=== PATIENT | female | born 1965 | race Two or more races ===

== ENCOUNTER 2018-03-12 05:12 | Emergency (ER) | payer SELFPAY ==
[~2018-03-12] VITALS: Ht 152.4 cm; Wt 74.8 kg
--- NOTE | 2018-03-12 05:29 | Emergency Room Report ---
History of Present Illness General Chief Complaint: Abdominal pain Source: Patient (Kenney Cotton MD) Present Illness HPI Patient is a 52-year-old female who presented after increased abdominal pain. Patient reports having periumbilical abdominal pain associated with nausea and vomiting. Patient reports having multiple episodes of vomiting and diarrhea. She was having severe abdominal discomfort. Patient states is constant in nature. She denies any hematemesis or bloody stools. Patient states that she had prior hysterectomy. She denies any fever. (Kenney Cotton MD) Allergies: Coded Allergies: No Known Allergies (Unverified , 03/12/18) Patient History Reviewed Nursing Documentation: PMH: Agreed; PSxH: Agreed (Kenney Cotton MD) Review of Systems All Other Systems: negative except mentioned in HPI (Kenney Cotton MD) Physical Exam Sp02 EP Interpretation: reviewed, normal General Appearance: normal inspection, well appearing, no apparent distress, alert, GCS 15, obese, Chronically Ill Head: atraumatic ENT: normal ENT inspection, hearing grossly normal, normal voice Neck: normal inspection, full range of motion, supple, no bony tend Respiratory: normal inspection, lungs clear, normal breath sounds, no respiratory distress, no retraction, no wheezing Cardiovascular #1: regular rate, rhythm, no edema Gastrointestinal: normal inspection, normal bowel sounds, non tender, soft, no guarding, no hernia, tenderness - epigastric Genitourinary: no CVA tenderness Musculoskeletal: normal inspection, back normal, normal range of motion Neurologic: normal inspection, alert, oriented x3, responsive, pediatric cardiologist III-XII nml as tested, speech normal Psychiatric: normal inspection, judgement/insight normal, mood/affect normal Skin: normal inspection, normal color, no rash (Kenney Cotton MD) Medical Decision Making Diagnostic Impression: Primary Impression: Abdominal pain Additional Impression: Gastroenteritis ER Course Please see above note by Dr. Cotton. Patient with abdominal pain, NVD 1 day. Labs with normal WBC and H/H. CMP unremarkable and UA negative. CT - liquid stool, some dilated loops - no obstruction. Improved with analgesia. Discussed treatment plan with patient and family. Patient stable for outpatient observation and treatment. Laboratory Tests Test 03/12/18 05:25 03/12/18 05:41 Urine Color Pale yellow Urine Appearance Clear Urine pH 6 (4.5-8.0) Urine Specific [place] 1.015 (1.005-1.035) Urine Protein 2+ (NEGATIVE) H Urine Glucose (UA) Negative (NEGATIVE) Urine Ketones Negative (NEGATIVE) Urine Blood 1+ (NEGATIVE) H Urine Nitrite Negative (NEGATIVE) Urine Bilirubin Negative (NEGATIVE) Urine Urobilinogen Normal MG/DL (0.0-1.0) Urine Leukocyte Esterase Negative (NEGATIVE) Urine RBC 0-2 /HPF (0 - 2) Urine WBC 0 /HPF (0 - 2) Urine Squamous Epithelial Cells Few /LPF (NONE/OCC) Urine Bacteria None /HPF (NONE) White Blood Count 8.9 K/UL (4.8-10.8) Red Blood Count 5.02 M/UL (4.20-5.40) Hemoglobin 15.1 G/DL (12.0-16.0) Hematocrit 45.2 % (37.0-47.0) Mean Corpuscular Volume 90 FL (80-99) Mean Corpuscular Hemoglobin 30.2 PG (27.0-31.0) Mean Corpuscular Hemoglobin Concent 33.5 G/DL (32.0-36.0) Red Cell Distribution Width 11.6 % (11.6-14.8) Platelet Count 307 K/UL (150-450) Mean Platelet Volume 5.8 FL (6.5-10.1) L Neutrophils (%) (Auto) 83.4 % (45.0-75.0) H Lymphocytes (%) (Auto) 10.9 % (20.0-45.0) L Monocytes (%) (Auto) 4.9 % (1.0-10.0) Eosinophils (%) (Auto) 0.1 % (0.0-3.0) Basophils (%) (Auto) 0.6 % (0.0-2.0) Prothrombin Time 10.2 SEC (9.30-11.50) Prothrombin Time INR 1.0 (0.9-1.1) PTT 27 SEC (23-33) Sodium Level 133 MMOL/L (136-145) L Potassium Level 3.7 MMOL/L (3.5-5.1) Chloride Level 100 MMOL/L (98-107) Carbon Dioxide Level 22 MMOL/L (21-32) Anion Gap 11 mmol/L (5-15) Blood Urea Nitrogen 15 mg/dL (7-18) Creatinine 0.7 MG/DL (0.55-1.30) Estimate Glomerular Filtration Rate > 60 mL/min (>60) Glucose Level 119 MG/DL (74-106) H Calcium Level 9.3 MG/DL (8.5-10.1) Total Bilirubin 0.4 MG/DL (0.2-1.0) Aspartate Amino Transferase (AST) 45 U/L (15-37) H Alanine Aminotransferase (ALT) 48 U/L (12-78) Alkaline Phosphatase 104 U/L (46-116) Troponin I 0.000 ng/mL (0.000-0.056) Total Protein 8.9 G/DL (6.4-8.2) H Albumin 3.9 G/DL (3.4-5.0) Globulin 5.0 g/dL Albumin/Globulin Ratio 0.8 (1.0-2.7) L Lipase 67 U/L (73-393) L (Saravanan Duncan M.D.) CT/MRI/US Diagnostic Results CT/MRI/US Diagnostic Results : Imaging Test Ordered: abd/pelvis Impression Fluid-filled nondistended loops of distal small bowel with liquid stool seen throughout the colon and possible mild concentric wall thickening of small bowel loops. 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 (Saravanan Duncan M.D.) Status: improved (Saravanan Duncan M.D.) Disposition: HOME, SELF-CARE Condition: Improved Referrals: NOT CHOSEN LILIAM/,REFERRING (PCP) Kenney Cotton MD Mar 12, 2018 05:28 Saravanan Duncan M.D. Mar 12, 2018 06:48
[2018-03-12] MEDS ORDERED: Dicyclomine HCl 10mg/5ml oral soln ORAL ONE (05:30)
[2018-03-12] MEDS ORDERED: LR 1000ml 1,000 ML IV SCH (05:30)
[2018-03-12 05:50] LABS: APPEARANCE,URINE CLEAR; BILIRUBIN, URINE NEGATIVE (NEGATIVE); COLOR,URINE PALE YELLOW; GLUCOSE, URINE (UA) NEGATIVE (NEGATIVE); KETONES,URINE NEGATIVE (NEGATIVE); LEUKOCYTE ESTERASE ,URINE NEGATIVE (NEGATIVE); NITRITE,URINE NEGATIVE (NEGATIVE); PH,URINE 6 (4.5-8.0); PROTEIN,URINE 2+ (NEGATIVE); UROBILINOGEN,URINE NORMAL MG/DL (0.0-1.0)
[2018-03-12 05:59] LABS: BASOPHILS % (AUTO) 0.6 % (0.0-2.0); EOSINOPHILS % (AUTO) 0.1 % (0.0-3.0); HEMATOCRIT 45.2 % (37.0-47.0); HEMOGLOBIN 15.1 G/DL (12.0-16.0); LYMPHOCYTES % (AUTO) 10.9 % (20.0-45.0); MEAN CORPUSCULAR VOLUME 90 FL (80-99); MONOCYTES % (AUTO) 4.9 % (1.0-10.0); NEUTROPHILS % (AUTO) 83.4 % (45.0-75.0); PLATELET COUNT 307 K/UL (150-450); RED BLOOD COUNT 5.02 M/UL (4.20-5.40); RED CELL DISTRIBUTION WIDTH 11.6 % (11.6-14.8); WHITE BLOOD COUNT 8.9 K/UL (4.8-10.8)
[2018-03-12 06:05] LABS: ANION GAP 11 mmol/L (5-15); BLOOD UREA NITROGEN 15 mg/dL (7-18); CALCIUM 9.3 MG/DL (8.5-10.1); CARBON DIOXIDE 22 MMOL/L (21-32); CHLORIDE 100 MMOL/L (98-107); CREATININE 0.7 MG/DL (0.55-1.30); POTASSIUM 3.7 MMOL/L (3.5-5.1); SODIUM 133 MMOL/L (136-145)
[2018-03-12 06:09] LABS: ALANINE AMINOTRANSFERASE 48 U/L (12-78); ALBUMIN 3.9 G/DL (3.4-5.0); ALBUMIN/GLOBULIN RATIO 0.8 (1.0-2.7); ALKALINE PHOSPHATASE 104 U/L (46-116); ASPARTATE AMINO TRANSFERASE 45 U/L (15-37); BILIRUBIN,TOTAL 0.4 MG/DL (0.2-1.0)
[2018-03-12 06:10] VITALS: BP 107/69
[2018-03-12] MEDS ORDERED: Isovue-300 100ml vial INJ PRN (07:00)
[2018-03-12] MEDS ORDERED: Morphine Sulfate 2mg/ml Inj IVP ONE (07:15)
[2018-03-12] MEDS ORDERED: TYLENOL325 MG ORAL (08:16)
[2018-03-12] MEDS ORDERED: TRAMADOL HCL50 MG ORAL (08:16)
[2018-03-12] MEDS ORDERED: ZOFRAN 4 MG4 MG/2 ML IV (08:16)
--- NOTE | 2018-03-12 08:40 | Diagnostic Imaging Report ---
Clinical Indication: Abdominal pain, periumbilical increased pain, nausea, vomiting, constant in nature Technique: No oral contrast utilized, per emergency room physician request IV administration nonionic contrast. Venous phase spiral acquisition obtained through the abdomen and pelvis. Multiplanar reconstructions were generated. Total dose length product 869.63 mGycm. CTDIvol(s) 15.7 mGy. Dose reduction achieved using automated exposure control Comparison: none Findings: There is colonic diverticulosis. No evidence of diverticulitis. Large and small bowel is borderline distended, fluid-filled. No definite wall thickening but the wall does appear to be somewhat enhancing. There is gradual transition to normal caliber distal ileum in the left lower quadrant. Proximal jejunal loops are equivocally mildly thick-walled. Considerable fluid is seen within many parts of the colon. No extraluminal gas or fluid. No intramural gas. The liver is diffusely hypoattenuating, consistent with fatty change. No focal abnormality. The gallbladder demonstrates wall thickening and enhancement, but no radiopaque calculi. No biliary ductal dilatation. The pancreas, spleen, adrenals, kidneys are all unremarkable. No retroperitoneal or mesenteric mass or adenopathy. A unilocular cyst measuring 6 cm long axis dimension is seen arising from the right ovary. The uterus is not visualized, presumed surgically absent. Impression: Fluid-filled borderline distended small bowel loops, with possible areas of small bowel wall thickening, no definite transition zone. Considerable fluid also seen within the colon. Findings most likely represent enteritis, either infectious or noninfectious inflammatory. Presence of some nondilated distal small bowel raises possibility of early/partial small bowel obstruction, but this is deemed less likely Colonic diverticulosis 6 cm right ovarian cyst. Further evaluation with ultrasound recommended. This was discussed by phone with Dr. Duncan at the time of interpretation Evidence of prior hysterectomy Hepatic steatosis The CT scanner at [facility] is accredited by the [employer] and the scans are performed using protocols designed to limit radiation exposure to as low as reasonably achievable to attain images of sufficient resolution adequate for diagnostic evaluation.
[2018-03-12 08:47] VITALS: BP 101/51
[2018-03-12 08:50] VITALS: BP 101/51
== END 2018-03-12 08:50 | disposition home or self-care (01) ==
LOC: EMR 05:26
DX: K52.9 Noninfective gastroenteritis and colitis, unspecified (principal); R11.10 Vomiting, unspecified; R10.9 Unspecified abdominal pain
CPT/HCPCS: 36415; 74177; 80053; 81003; 83690; 84484; 85025; 85610; 85730; 96361; 96374; 96375; 99284; J2270; J2405; Q9967

== ENCOUNTER 2018-12-12 19:50 | Inpatient (IN) | payer MEDICAID, SELFPAY ==
[~2018-12-12] VITALS: Ht 152.4 cm; Wt 77.6 kg
[~2018-12-12 19:50] MED LIST: TRAMADOL HCL50 MG ORAL; TYLENOL325 MG ORAL; ZOFRAN 4 MG4 MG/2 ML IV
[2018-12-12 20:07] VITALS: BP 135/81
--- NOTE | 2018-12-12 20:07 | NUR ---
ED Nurse Note: Pt ambulated to ED from home c/o 01/30 RUQ abd pain radiating to back [id number], worsening today at 1500. Pt is A&Ox4
[2018-12-12 20:16] LABS: APPEARANCE,URINE CLEAR; BILIRUBIN, URINE 2+ (NEGATIVE); COLOR,URINE BROWN; GLUCOSE, URINE (UA) NEGATIVE (NEGATIVE); KETONES,URINE 1+ (NEGATIVE); LEUKOCYTE ESTERASE ,URINE 1+ (NEGATIVE); NITRITE,URINE NEGATIVE (NEGATIVE); PH,URINE 6.5 (4.5-8.0); PROTEIN,URINE 2+ (NEGATIVE); UROBILINOGEN,URINE 4 MG/DL (0.0-1.0)
--- NOTE | 2018-12-12 20:17 | Emergency Room Report ---
History of Present Illness General Chief Complaint: Abdominal Pain Source: Patient (Lita Gant) Present Illness HPI 53-year-old female with history of gallstones here complaining of epigastric and right upper quadrant pain that has been going on for the past 3 months now radiating to her back. Patient went to [place] a month ago and had an ultrasound done of her abdomen and was diagnosed with gallstone. Patient has not been appointment with her primary care provider yet as she has not had her [employer] insurance fix. Patient denies nausea and vomiting, diarrhea, blood in her stool, fever and chills. Patient has been taking Advil for pain rating the pain 3 out of 10 at the moment without radiation however did have radiation to her back today. Patient reports that she eats greasy food however denies eating spicy and acidic food. Denies drinking alcohol, smoking tobacco, drug use. Denies chest pain, shortness of breath, palpitation, history of hypertension, diabetes, and all other associated symptoms. (Lita Gant) Allergies: Coded Allergies: No Known Allergies (Unverified , 03/12/18) Patient History Past Medical History: see triage record Past Surgical History: unable to obtain Pertinent Family History: none Last Menstrual Period: TOTAL HYSTERECTOMY 15 YRS Now: No Immunizations: UTD Reviewed Nursing Documentation: PMH: Agreed; PSxH: Agreed (Lita Gant) Nursing Documentation-PMH Past Medical History: No History, Except For (Lita Gant) Review of Systems All Other Systems: negative except mentioned in HPI (Lita Gant) Physical Exam Vital Signs Date Time Temp Pulse Resp B/P (MAP) Pulse Ox O2 Delivery O2 Flow Rate FiO2 12/12/18 19:53 98.6 66 15 135/81 (99) 97 Room Air Sp02 EP Interpretation: reviewed, normal General Appearance: normal inspection, well appearing, no apparent distress, alert, GCS 15 Head: normocephalic, atraumatic Eyes: bilateral eye normal inspection, bilateral eye PERRL ENT: normal ENT inspection, hearing grossly normal, normal pharynx, no angioedema Neck: normal inspection, full range of motion, supple, thyroid normal Respiratory: normal inspection, chest non-tender, lungs clear, normal breath sounds, no rhonchi, no respiratory distress, no retraction, no wheezing Cardiovascular #1: normal inspection, normal peripheral pulses, regular rate, rhythm, no edema, no murmur Gastrointestinal: normal bowel sounds, non tender, soft, no mass, no guarding, no hernia, no pulsatile mass, no rebound, other - Negative Gutiérrez's sign Rectal: deferred Genitourinary: no CVA tenderness Musculoskeletal: normal inspection, back normal, gait/station normal Neurologic: normal inspection, alert, oriented x3 Psychiatric: normal inspection, judgement/insight normal Skin: normal inspection, normal color, no rash, warm/dry Lymphatic: normal inspection, no adenopathy (Lita Gant) Medical Decision Making PA Attestation All my diagnosis and treatment plans were reviewed ad discussed with my supervising physician Dr. Cotton (Lita Gant) Diagnostic Impression: Primary Impression: Elevated liver enzymes Additional Impressions: RUQ abdominal tenderness Acute gallstone pancreatitis ER Course 53-year-old female with history of gallstones here complaining of epigastric and right upper quadrant pain that has been going on for the past 3 months now radiating to her back. Patient went to [place] a month ago and had an ultrasound done of her abdomen and was diagnosed with gallstone. Patient has not been appointment with her primary care provider yet as she has not had her [employer] insurance fix. Patient denies nausea and vomiting, diarrhea, blood in her stool, fever and chills. Patient has been taking Advil for pain rating the pain 3 out of 10 at the moment without radiation however did have radiation to her back today. Patient reports that she eats greasy food however denies eating spicy and acidic food. Denies drinking alcohol, smoking tobacco, drug use. Denies chest pain, shortness of breath, palpitation, history of hypertension, diabetes, and all other associated symptoms. Ddx considered but are not limited to: appendicitis, cholycisitis, gastritis, gasthroentritis, UTI, pylonephritis, SBO, diverticulitis, influenza with GI manifestation, GA, cholylithiasis Vital signs: are WNL, pt. is afebrile H&PE are most consistent with: Uncomplicated cholelithiasis RUQ abdominal tenderness, elevated liver enzymes ORDERS: CBC, CMP, UA, EKG, PTT, PT, CXR, type and cross ED INTERVENTIONS: None required at this time. Patient was admited with diagnosis of elevated liver enzymes and RUQ tenderness to under supervision of : Yury pt stable at time of admission AST and ALT above 600, Alk phos: 185 (Lita Gant) ER Course Patient presented for increased right upper abdominal pain. Differential diagnosis include was not limited to biliary colic, pancreatitis, cholecystitis , choledocholithiasis, peptic ulcer disease among others. Because of complexity of patient's case laboratory testing and imaging studies were ordered. Patient was seen initially by physician hotel assistant general manager. Patient was noted to have some epigastric and right upper quadrant tenderness. Patient's laboratory testing showed evidence of elevation hepatic enzymes as well as hyperbilirubinemia. Abdominal ultrasound was ordered to evaluate for possible choledocholithiasis. Dr. Gomez was contacted for inpatient management due to need for inpatient monitoring and treatment. Labs Test 12/12/18 20:00 12/12/18 20:18 12/13/18 07:34 Urine Color Brown Urine Appearance Clear Urine pH 6.5 (4.5-8.0) Urine Specific [place] 1.015 (1.005-1.035) Urine Protein 2+ (NEGATIVE) Urine Glucose (UA) Negative (NEGATIVE) Urine Ketones 1+ (NEGATIVE) Urine Blood Negative (NEGATIVE) Urine Nitrite Negative (NEGATIVE) Urine Bilirubin 2+ (NEGATIVE) Urine Ictotest Positive (NEGATIVE) Urine Urobilinogen 4 MG/DL (0.0-1.0) Urine Leukocyte Esterase 1+ (NEGATIVE) Urine RBC 0 /HPF (0 - 2) Urine WBC 0-2 /HPF (0 - 2) Urine Squamous Epithelial Cells Occasional /LPF Urine Bacteria Few /HPF (NONE) Prothrombin Time 10.0 SEC (9.30-11.50) Prothromb Time International Ratio 0.9 (0.9-1.1) Activated Partial Thromboplast Time 24 SEC (23-33) Total Bilirubin 2.4 MG/DL (0.2-1.0) Direct Bilirubin 1.8 MG/DL (0.0-0.3) Aspartate Amino Transf (AST/SGOT) 629 U/L (15-37) Alanine Aminotransferase (ALT/SGPT) 620 U/L (12-78) Alkaline Phosphatase 185 U/L (46-116) Total Protein 7.8 G/DL (6.4-8.2) Albumin 4.2 G/DL (3.4-5.0) Globulin 3.6 g/dL Albumin/Globulin Ratio 1.2 (1.0-2.7) White Blood Count 5.9 K/UL (4.8-10.8) Red Blood Count 4.28 M/UL (4.20-5.40) Hemoglobin 13.2 G/DL (12.0-16.0) Hematocrit 38.8 % (37.0-47.0) Mean Corpuscular Volume 91 FL (80-99) Mean Corpuscular Hemoglobin 30.7 PG (27.0-31.0) Mean Corpuscular Hemoglobin Concent 33.9 G/DL (32.0-36.0) Red Cell Distribution Width 12.2 % (11.6-14.8) Platelet Count 258 K/UL (150-450) Mean Platelet Volume 5.2 FL (6.5-10.1) Neutrophils (%) (Auto) 69.0 % (45.0-75.0) Lymphocytes (%) (Auto) 23.7 % (20.0-45.0) Monocytes (%) (Auto) 5.5 % (1.0-10.0) Eosinophils (%) (Auto) 1.2 % (0.0-3.0) Basophils (%) (Auto) 0.6 % (0.0-2.0) Sodium Level 142 MMOL/L (136-145) Potassium Level 3.6 MMOL/L (3.5-5.1) Chloride Level 107 MMOL/L (98-107) Carbon Dioxide Level 24 MMOL/L (21-32) Anion Gap 11 mmol/L (5-15) Blood Urea Nitrogen 10 mg/dL (7-18) Creatinine 0.5 MG/DL (0.55-1.30) Estimat Glomerular Filtration Rate > 60 mL/min (>60) Glucose Level 135 MG/DL (74-106) Hemoglobin A1c 5.8 % (4.3-6.0) Calcium Level 8.8 MG/DL (8.5-10.1) Triglycerides Level 90 MG/DL (30-150) Cholesterol Level 200 MG/DL (< 200) LDL Cholesterol 111 mg/dL (<100) HDL Cholesterol 65 MG/DL (40-60) Cholesterol/HDL Ratio 3.1 (3.3-4.4) Amylase Level 461 U/L (25-115) Lipase > 2000 U/L (73-393) Thyroid Stimulating Hormone (TSH) 1.942 uiU/mL (0.358-3.740) (Kenney Cotton MD) EKG Diagnostic Results Rate: normal Rhythm: NSR ST Segments: no acute changes (Lita Gant) Rhythm Strip Diag. Results Rhythm: NSR (Lita Gant) Chest X-Ray Diagnostic Results Chest X-Ray Diagnostic Results : Chest X-Ray Ordered: Yes # of Views/Limited/Complete: 1 View Indication: Other EP Interpretation: Yes PA Xray: Interpretation reviewed, by supervising MD, and agrees with findings. Interpretation: no consolidation, no effusion, no pneumothorax Impression: No acute disease Electronically Signed by: lita SCHMITT Scribe Text COMPARISON: No relevant prior studies available. FINDINGS: Lungs: No consolidation or mass. Pleural space: No acute findings Heart: No cardiomegaly. Mediastinum: Unremarkable. Bones/joints: No acute findings. IMPRESSION: No acute cardiopulmonary process. (Lita Gant) Last Vital Signs Date Time Temp Pulse Resp B/P (MAP) Pulse Ox O2 Delivery O2 Flow Rate FiO2 12/12/18 20:07 66 15 Room Air 12/12/18 20:07 98.6 135/81 97 (Lita Gant) Status: unchanged (Kenney Cotton MD) Disposition: ADMITTED INPATIENT Condition: Stable Lita Gant Dec 12, 2018 20:16 Kenney Cotton MD Dec 12, 2018 21:07
[2018-12-12 20:35] LABS: BASOPHILS % (AUTO) 0.7 % (0.0-2.0); EOSINOPHILS % (AUTO) 1.3 % (0.0-3.0); HEMATOCRIT 37.3 % (37.0-47.0); HEMOGLOBIN 13.1 G/DL (12.0-16.0); LYMPHOCYTES % (AUTO) 26.1 % (20.0-45.0); MEAN CORPUSCULAR VOLUME 87 FL (80-99); MONOCYTES % (AUTO) 8.6 % (1.0-10.0); NEUTROPHILS % (AUTO) 63.3 % (45.0-75.0); PLATELET COUNT 273 K/UL (150-450); RED BLOOD COUNT 4.27 M/UL (4.20-5.40); RED CELL DISTRIBUTION WIDTH 11.7 % (11.6-14.8); WHITE BLOOD COUNT 7.6 K/UL (4.8-10.8)
[2018-12-12 20:45] LABS: ANION GAP 10 mmol/L (5-15); BLOOD UREA NITROGEN 12 mg/dL (7-18); CARBON DIOXIDE 26 MMOL/L (21-32); CHLORIDE 102 MMOL/L (98-107); CREATININE 0.5 MG/DL (0.55-1.30); POTASSIUM 4.1 MMOL/L (3.5-5.1); SODIUM 138 MMOL/L (136-145)
[2018-12-12 20:56] LABS: ALANINE AMINOTRANSFERASE 620 U/L (12-78); ALBUMIN 4.2 G/DL (3.4-5.0); ALBUMIN/GLOBULIN RATIO 1.2 (1.0-2.7); ALKALINE PHOSPHATASE 185 U/L (46-116); ASPARTATE AMINO TRANSFERASE 629 U/L (15-37); BILIRUBIN,TOTAL 2.4 MG/DL (0.2-1.0)
[2018-12-12 20:57] LABS: BILIRUBIN,DIRECT 1.8 MG/DL (0.0-0.3)
--- NOTE | 2018-12-12 21:18 | Diagnostic Imaging Report ---
EXAM: XR Chest, 1 View CLINICAL HISTORY: SOB TECHNIQUE: Frontal view of the chest. COMPARISON: No relevant prior studies available. FINDINGS: Lungs: No consolidation or mass. Pleural space: No acute findings Heart: No cardiomegaly. Mediastinum: Unremarkable. Bones/joints: No acute findings. IMPRESSION: No acute cardiopulmonary process.
[2018-12-12 21:36] LABS: INR 0.9 (0.9-1.1)
--- NOTE | 2018-12-12 22:24 | NUR ---
ED Nurse Note: PT RETURNED FROM US
--- NOTE | 2018-12-12 22:41 | Diagnostic Imaging Report ---
EXAM: US Abdomen Limited, Right Upper Quadrant CLINICAL HISTORY: PAIN TECHNIQUE: Real-time ultrasound of the right upper quadrant with image documentation. COMPARISON: No relevant prior studies available. FINDINGS: Liver: Increased echogenicity. No mass. No intrahepatic bile duct dilation. Gallbladder: Tiny subcentimeter stones throughout the gallbladder. Common bile duct: Unremarkable. No stones. No dilation. Pancreas: Tail not visualized. Right kidney: No stones. No solid mass. No hydronephrosis. IMPRESSION: Hepatic steatosis. Cholelithiasis. No definite cholecystitis.
[2018-12-12] MEDS ORDERED: Morphine Sulfate 4mg/ml Inj (IV USE ONLY) IVP ONE (23:00)
--- NOTE | 2018-12-12 23:08 | NUR ---
TRANSFER TO FLOOR: Patient transferred to as ordered, per . Report given to BRAYDEN Ortega. Belongings and medications given to . Family and or S/O informed of transfer.
[2018-12-12 23:26] VITALS: BP 119/79
[2018-12-13] MEDS ORDERED: traMADol 50mg tab ORAL PRN
--- NOTE | 2018-12-13 | NUR ---
NURSE NOTES: Received patient from ER, ambulatory with steady gait, denies pain at this time. VSS. Dr Gomez called back unit for admission orders. IV access asymptomatic running IVF at 100ml/hr per MD orders. at bedside. Fall and safety precautions taken, call light within reach. Patient and oriented to room. NPO status per MD order, patient and verbalized understanding.
[2018-12-13] MEDS: D5NS 1,000 ML IV SCH ×3 (00:05→20:00)
[2018-12-13 04:00] VITALS: BP 125/83
--- NOTE | 2018-12-13 07:39 | NUR ---
HAND-OFF: Report given to BRAYDEN Walls.
--- NOTE | 2018-12-13 07:50 | NUR ---
NURSE NOTES: received pt in bed, room air, awake, by the bedside, no complaint of pain or discomfort. IV access at [facility], pervious. Pt is NPO, sign posted at the bed. Bed locked at the lowest position possible, call light within easy reach, siderails up x2. Will continue to monitor pt and follow up with the plan of care.
[2018-12-13 08:00] VITALS: BP 132/87
[2018-12-13 08:10] LABS: BASOPHILS % (AUTO) 0.6 % (0.0-2.0); EOSINOPHILS % (AUTO) 1.2 % (0.0-3.0); HEMATOCRIT 38.8 % (37.0-47.0); HEMOGLOBIN 13.2 G/DL (12.0-16.0); LYMPHOCYTES % (AUTO) 23.7 % (20.0-45.0); MEAN CORPUSCULAR VOLUME 91 FL (80-99); MONOCYTES % (AUTO) 5.5 % (1.0-10.0); PLATELET COUNT 258 K/UL (150-450); RED BLOOD COUNT 4.28 M/UL (4.20-5.40); RED CELL DISTRIBUTION WIDTH 12.2 % (11.6-14.8); WHITE BLOOD COUNT 5.9 K/UL (4.8-10.8)
--- NOTE | 2018-12-13 08:19 | General Progress Note ---
Assessment/Plan Problem List: (1) RUQ abdominal tenderness ICD Codes: R10.811 - Right upper quadrant abdominal tenderness SNOMED: 149844063 (2) Elevated liver enzymes ICD Codes: R74.8 - Abnormal levels of other serum enzymes SNOMED: 324719819 (3) Fatty liver ICD Codes: K76.0 - Fatty (change of) liver, not elsewhere classified SNOMED: 049176652 (4) Cholelithiasis ICD Codes: K80.20 - Calculus of gallbladder without cholecystitis without obstruction SNOMED: 044632168 Assessment/Plan: MRCP repeat labs ERCP if needed abx surg consult Subjective ROS Limited/Unobtainable: Yes Allergies: Coded Allergies: No Known Allergies (Unverified , 03/12/18) Objective Last 24 Hour Vital Signs Date Time Temp Pulse Resp B/P (MAP) Pulse Ox O2 Delivery O2 Flow Rate FiO2 12/13/18 04:00 98.2 78 18 125/83 (97) 98 12/13/18 00:23 Room Air 12/12/18 23:34 98.3 12/12/18 23:26 98.3 76 18 119/79 (92) 98 12/12/18 23:10 98.2 82 16 138/72 96 Room Air 12/12/18 20:07 66 15 Room Air 12/12/18 20:07 98.6 68 15 135/81 97 Room Air 12/12/18 19:53 98.6 66 15 135/81 (99) 97 Room Air Intake and Output 12/12/18 12/13/18 19:00 07:00 Intake Total 700 ml Balance 700 ml Intake IV Total 700 ml # Voids 2 Laboratory Tests 12/12/18 20:00: Urine Color Brown, Urine Appearance Clear, Urine pH 6.5, Urine Specific [place] 1.015, Urine Protein 2+H, Urine Glucose (UA) Negative, Urine Ketones 1+H, Urine Blood Negative, Urine Nitrite Negative, Urine Bilirubin 2+H, Urine Ictotest Positive, Urine Urobilinogen 4H, Urine Leukocyte Esterase 1+H, Urine RBC 0, Urine WBC 0-2, Urine Squamous Epithelial Cells Occasional, Urine Bacteria Few 12/12/18 20:18: White Blood Count 7.6, Red Blood Count 4.27, Hemoglobin 13.1, Hematocrit 37.3, Mean Corpuscular Volume 87, Mean Corpuscular Hemoglobin 30.7, Mean Corpuscular Hemoglobin Concent 35.1, Red Cell Distribution Width 11.7, Platelet Count 273, Mean Platelet Volume 4.6L, Neutrophils (%) (Auto) 63.3, Lymphocytes (%) (Auto) 26.1, Monocytes (%) (Auto) 8.6, Eosinophils (%) (Auto) 1.3, Basophils (%) (Auto ) 0.7, Prothrombin Time 10.0, Prothromb Time International Ratio 0.9, Activated Partial Thromboplast Time 24, Sodium Level 138, Potassium Level 4.1, Chloride Level 102, Carbon Dioxide Level 26, Anion Gap 10, Blood Urea Nitrogen 12, Creatinine 0.5L, Estimat Glomerular Filtration Rate > 60, Glucose Level 127H, Calcium Level 9.0, Total Bilirubin 2.4H, Direct Bilirubin 1.8H, Aspartate Amino Transf (AST/SGOT) 629H, Alanine Aminotransferase (ALT/SGPT) 620H, Alkaline Phosphatase 185H, Total Protein 7.8, Albumin 4.2, Globulin 3.6, Albumin/ Globulin Ratio 1.2 12/13/18 07:34: White Blood Count 5.9, Red Blood Count 4.28, Hemoglobin 13.2, Hematocrit 38.8, Mean Corpuscular Volume 91, Mean Corpuscular Hemoglobin 30.7, Mean Corpuscular Hemoglobin Concent 33.9, Red Cell Distribution Width 12.2, Platelet Count 258, Mean Platelet Volume 5.2L, Neutrophils (%) (Auto) 69.0, Lymphocytes (%) (Auto) 23.7, Monocytes (%) (Auto) 5.5, Eosinophils (%) (Auto) 1.2, Basophils (%) (Auto ) 0.6, Sodium Level [Pending], Potassium Level [Pending], Chloride Level [ Pending], Carbon Dioxide Level [Pending], Blood Urea Nitrogen [Pending], Creatinine [Pending], Estimat Glomerular Filtration Rate [Pending], Glucose Level [Pending], Calcium Level [Pending], Hemoglobin A1c [Pending], Triglycerides Level [Pending], Cholesterol Level [Pending], LDL Cholesterol [ Pending], HDL Cholesterol [Pending], Cholesterol/HDL Ratio [Pending], Amylase Level [Pending], Lipase [Pending], Thyroid Stimulating Hormone (TSH) [Pending] Height (Feet): 5 Height (Inches): 0.00 Weight (Pounds): 160 General Appearance: alert EENT: normal ENT inspection Neck: supple Cardiovascular: normal rate Respiratory/Chest: decreased breath sounds Abdomen: normal bowel sounds, non tender, soft Extremities: non-tender Frank Hayward MD Dec 13, 2018 08:19
[2018-12-13] MEDS: Heparin 5000 units/ml inj SUBQ SCH ×2 (08:22→22:01)
--- NOTE | 2018-12-13 08:46 | General Progress Note ---
Assessment/Plan Assessment/Plan: Patient is seen and examined. S: My pain is better O: seems comfortable, at the bed side A/P: 1- Acute Billiary colic Plan: GI, surgeon and ID are consulted. Notes from GI is reviewed Subjective Allergies: Coded Allergies: No Known Allergies (Unverified , 03/12/18) Objective Last 24 Hour Vital Signs Date Time Temp Pulse Resp B/P (MAP) Pulse Ox O2 Delivery O2 Flow Rate FiO2 12/13/18 04:00 98.2 78 18 125/83 (97) 98 12/13/18 00:23 Room Air 12/12/18 23:34 98.3 12/12/18 23:26 98.3 76 18 119/79 (92) 98 12/12/18 23:10 98.2 82 16 138/72 96 Room Air 12/12/18 20:07 66 15 Room Air 12/12/18 20:07 98.6 68 15 135/81 97 Room Air 12/12/18 19:53 98.6 66 15 135/81 (99) 97 Room Air Intake and Output 12/12/18 12/13/18 19:00 07:00 Intake Total 700 ml Balance 700 ml Intake IV Total 700 ml # Voids 2 Laboratory Tests 12/12/18 20:00: Urine Color Brown, Urine Appearance Clear, Urine pH 6.5, Urine Specific [place] 1.015, Urine Protein 2+H, Urine Glucose (UA) Negative, Urine Ketones 1+H, Urine Blood Negative, Urine Nitrite Negative, Urine Bilirubin 2+H, Urine Ictotest Positive, Urine Urobilinogen 4H, Urine Leukocyte Esterase 1+H, Urine RBC 0, Urine WBC 0-2, Urine Squamous Epithelial Cells Occasional, Urine Bacteria Few 12/12/18 20:18: White Blood Count 7.6, Red Blood Count 4.27, Hemoglobin 13.1, Hematocrit 37.3, Mean Corpuscular Volume 87, Mean Corpuscular Hemoglobin 30.7, Mean Corpuscular Hemoglobin Concent 35.1, Red Cell Distribution Width 11.7, Platelet Count 273, Mean Platelet Volume 4.6L, Neutrophils (%) (Auto) 63.3, Lymphocytes (%) (Auto) 26.1, Monocytes (%) (Auto) 8.6, Eosinophils (%) (Auto) 1.3, Basophils (%) (Auto ) 0.7, Prothrombin Time 10.0, Prothromb Time International Ratio 0.9, Activated Partial Thromboplast Time 24, Sodium Level 138, Potassium Level 4.1, Chloride Level 102, Carbon Dioxide Level 26, Anion Gap 10, Blood Urea Nitrogen 12, Creatinine 0.5L, Estimat Glomerular Filtration Rate > 60, Glucose Level 127H, Calcium Level 9.0, Total Bilirubin 2.4H, Direct Bilirubin 1.8H, Aspartate Amino Transf (AST/SGOT) 629H, Alanine Aminotransferase (ALT/SGPT) 620H, Alkaline Phosphatase 185H, Total Protein 7.8, Albumin 4.2, Globulin 3.6, Albumin/ Globulin Ratio 1.2 12/13/18 07:34: White Blood Count 5.9, Red Blood Count 4.28, Hemoglobin 13.2, Hematocrit 38.8, Mean Corpuscular Volume 91, Mean Corpuscular Hemoglobin 30.7, Mean Corpuscular Hemoglobin Concent 33.9, Red Cell Distribution Width 12.2, Platelet Count 258, Mean Platelet Volume 5.2L, Neutrophils (%) (Auto) 69.0, Lymphocytes (%) (Auto) 23.7, Monocytes (%) (Auto) 5.5, Eosinophils (%) (Auto) 1.2, Basophils (%) (Auto ) 0.6, Sodium Level [Pending], Potassium Level [Pending], Chloride Level [ Pending], Carbon Dioxide Level [Pending], Blood Urea Nitrogen [Pending], Creatinine [Pending], Estimat Glomerular Filtration Rate [Pending], Glucose Level [Pending], Calcium Level [Pending], Hemoglobin A1c 5.8, Triglycerides Level [Pending], Cholesterol Level [Pending], LDL Cholesterol [Pending], HDL Cholesterol [Pending], Cholesterol/HDL Ratio [Pending], Amylase Level [Pending] , Lipase [Pending], Thyroid Stimulating Hormone (TSH) [Pending] Height (Feet): 5 Height (Inches): 0.00 Weight (Pounds): 160 Juana Gomez MD Dec 13, 2018 08:46
--- NOTE | 2018-12-13 08:47 | History & Physical ---
History and Physical History & Physicial seen and examined. Full Dictation completed Juana Gomez MD Dec 13, 2018 08:47
[2018-12-13 08:58] LABS: AMYLASE 461 U/L (25-115); ANION GAP 11 mmol/L (5-15); BLOOD UREA NITROGEN 10 mg/dL (7-18); CALCIUM 8.8 MG/DL (8.5-10.1); CARBON DIOXIDE 24 MMOL/L (21-32); CHLORIDE 107 MMOL/L (98-107); CHOLESTEROL 200 MG/DL (< 200); CREATININE 0.5 MG/DL (0.55-1.30); HDL CHOLESTEROL 65 MG/DL (40-60); POTASSIUM 3.6 MMOL/L (3.5-5.1); SODIUM 142 MMOL/L (136-145); TRIGLYCERIDES 90 MG/DL (30-150)
--- NOTE | 2018-12-13 09:30 | History and Physical Report ---
DATE OF ADMISSION: 12/12/2018 SOURCE OF INFORMATION: Patient and EMR. HISTORY OF PRESENT ILLNESS: The patient is a 53-year-old female with an unremarkable past medical history, who presented with worsening of the pain in the right upper abdomen. The patient reported the pain gets worse. Denies any nausea or vomitus. Denies any fever or chills. At the time of evaluation in the emergency room, the patient's vital signs were stable. REVIEW OF SYSTEMS: All 12 elements review of systems reviewed. Pertinent positive and negative as above. ALLERGIES: NKDA. FAMILY HISTORY: Reviewed and noncontributory. PAST SURGICAL HISTORY: Hysterectomy and tubal ligation. HOME MEDICATIONS: Including tramadol and Zofran. SOCIAL HISTORY: The patient denies history of illicit drug abuse, smoking, or alcohol abuse. The patient lives with the . No children. PHYSICAL EXAMINATION: VITAL SIGNS: Blood pressure 130/80, temperature 98.2, pulse oximetry 98% on room air, respiratory rate 18. HEAD AND NECK: Atraumatic and normocephalic. CHEST: Clear to auscultation. HEART: S1, S2. Regular rate and rhythm. ABDOMEN: Soft. No organomegaly. Positive for the guarding on deep palpation in the right upper quadrant. Negative for rebound tenderness. MUSCULOSKELETAL: No gross lateralized motor deficit. NEUROLOGY: Awake, alert, and oriented x3. LABORATORY AND DIAGNOSTIC DATA: Labs dated December 12, 2018, shows WBC 7.6, hemoglobin 13.1, platelet 273. Sodium 138, potassium 4.1, BUN 12, creatinine 0.5. AST 629, ALT 620. UA shows 2+ bilirubin. INR is within normal limits. Imaging, abdominal ultrasound dated December 12, 2018, shows cholelithiasis with no evidence of acute cholecystitis. Chest x-ray is unremarkable. ASSESSMENT: 1. Acute biliary colic. 2. Obstructive biliary symptoms with no evidence of acute cholecystitis. 3. Abnormal LFT. 4. Direct hyperbilirubinemia. 5. GI and DVT prophylaxis. PLAN OF CARE: GI, General Surgery are consulted. We will continue with the current management. I agree with the continue of the care in the general medical floor. Juana Gomez M.D. DR: MIGUELITO JOB#: [id number] CC:
[2018-12-13] MEDS: Piperacillin/Tazobactam 3.375 GM in NS 110 ML IVPB SCH ×2 (11:09→22:08)
[2018-12-13 12:00] VITALS: BP 128/74
--- NOTE | 2018-12-13 13:38 | Consultation ---
History of Present Illness General Reason for Hospitalization: Abdominal Pain Present Illness HPI This is a 53-year-old otherwise healthy female who presented to the emergency department [facility] complaining of worsening right upper quadrant abdominal pain with associated nausea for 1 day. In ED noted to have normal WBC but with elevated liver function tests and lipase/amylase. Ultrasound identified hepatic steatosis and cholelithiasis. Patient admitted for further care and management. Surgery called to evaluate. Patient seen, patient evaluated, chart reviewed. Currently patient states that pain is improved with medication she was given. Denies any current nausea or vomiting. Allergies: Coded Allergies: No Known Allergies (Unverified , 03/12/18) Medication History Scheduled PRN Acetaminophen (Tylenol), 650 MG ORAL Q6H PRN for Prn Pain/Headache/Temp > 101 Ondansetron* (Zofran*), 4 MG IV Q8H PRN for Nausea & Vomiting Tramadol Hcl* (Ultram*), 50 MG ORAL Q6H PRN for For Pain Patient History History Provided By: Patient, Family Member, Medical Record, PMD Healthcare decision maker Resuscitation status Advanced Directive on File Past Medical/Surgical History Past Medical/Surgical History: (1) Fatty liver (2) Cholelithiasis (3) Elevated liver enzymes (4) RUQ abdominal tenderness Review of Systems Review of Symptoms General ROS: no weight loss or fever Psychological ROS: no depression or mood changes, no memory loss Ophthalmic ROS: no visual changes or eye irritation ENT ROS: no nasal congestion, hearing loss, dizziness Allergy and Immunology ROS: no allergic symptoms or urticaria Hematological and Lymphatic ROS: no swollen glands, unusual bleeding or bruising Endocrine ROS: no polyuria, polydipsia, weight changes, temperature intolerance Respiratory ROS: no cough, shortness of breath, or wheezing Cardiovascular ROS: no chest pain or dyspnea on exertion Gastrointestinal ROS: denies abdominal pain, no bright red blood in stool. Musculoskeletal ROS: no myalgias or arthralgias Neurological ROS: no TIA or stroke symptoms Dermatological ROS: no new or changing skin lesions, rashes or pruritis Physical Exam Physical Exam General appearance: alert, cooperative, no distress, appears stated age Head: Normocephalic, without obvious abnormality, atraumatic Eyes: conjunctivae/corneas clear. PERRL, EOM's intact. Fundi benign Throat: Lips, mucosa, and tongue normal. Teeth and gums normal Neck: supple, symmetrical, trachea midline, no adenopathy, thyroid: not enlarged, symmetric, no tenderness/mass/nodules, no carotid bruit and no JVD Lungs: clear to auscultation bilaterally Heart: regular rate and rhythm, S1, S2 normal, no murmur, click, rub or gallop Abdomen: soft, non-tender. Bowel sounds normal. No masses, no organomegaly Extremities: extremities normal, atraumatic, no cyanosis or edema Pulses: 2+ and symmetric Skin: Skin color, texture, turgor normal. No rashes or lesions Neurologic: Grossly normal Last 24 Hour Vital Signs Date Time Temp Pulse Resp B/P (MAP) Pulse Ox O2 Delivery O2 Flow Rate FiO2 12/13/18 09:00 Room Air 12/13/18 08:00 98.6 74 19 132/87 (102) 98 12/13/18 04:00 98.2 78 18 125/83 (97) 98 12/13/18 00:23 Room Air 12/12/18 23:34 98.3 12/12/18 23:26 98.3 76 18 119/79 (92) 98 12/12/18 23:10 98.2 82 16 138/72 96 Room Air 12/12/18 20:07 66 15 Room Air 12/12/18 20:07 98.6 68 15 135/81 97 Room Air 12/12/18 19:53 98.6 66 15 135/81 (99) 97 Room Air Intake and Output 12/12/18 12/13/18 19:00 07:00 Intake Total 700 ml Balance 700 ml Intake IV Total 700 ml # Voids 2 Laboratory Tests Test 12/12/18 20:00 12/12/18 20:18 12/13/18 07:34 Urine Color Brown Urine Appearance Clear Urine pH 6.5 (4.5-8.0) Urine Specific [place] 1.015 (1.005-1.035) Urine Protein 2+ (NEGATIVE) H Urine Glucose (UA) Negative (NEGATIVE) Urine Ketones 1+ (NEGATIVE) H Urine Blood Negative (NEGATIVE) Urine Nitrite Negative (NEGATIVE) Urine Bilirubin 2+ (NEGATIVE) H Urine Ictotest Positive (NEGATIVE) Urine Urobilinogen 4 MG/DL (0.0-1.0) H Urine Leukocyte Esterase 1+ (NEGATIVE) H Urine RBC 0 /HPF (0 - 2) Urine WBC 0-2 /HPF (0 - 2) Urine Squamous Epithelial Cells Occasional /LPF Urine Bacteria Few /HPF (NONE) White Blood Count 7.6 K/UL (4.8-10.8) 5.9 K/UL (4.8-10.8) Red Blood Count 4.27 M/UL (4.20-5.40) 4.28 M/UL (4.20-5.40) Hemoglobin 13.1 G/DL (12.0-16.0) 13.2 G/DL (12.0-16.0) Hematocrit 37.3 % (37.0-47.0) 38.8 % (37.0-47.0) Mean Corpuscular Volume 87 FL (80-99) 91 FL (80-99) Mean Corpuscular Hemoglobin 30.7 PG (27.0-31.0) 30.7 PG (27.0-31.0) Mean Corpuscular Hemoglobin Concent 35.1 G/DL (32.0-36.0) 33.9 G/DL (32.0-36.0) Red Cell Distribution Width 11.7 % (11.6-14.8) 12.2 % (11.6-14.8) Platelet Count 273 K/UL (150-450) 258 K/UL (150-450) Mean Platelet Volume 4.6 FL (6.5-10.1) L 5.2 FL (6.5-10.1) L Neutrophils (%) (Auto) 63.3 % (45.0-75.0) 69.0 % (45.0-75.0) Lymphocytes (%) (Auto) 26.1 % (20.0-45.0) 23.7 % (20.0-45.0) Monocytes (%) (Auto) 8.6 % (1.0-10.0) 5.5 % (1.0-10.0) Eosinophils (%) (Auto) 1.3 % (0.0-3.0) 1.2 % (0.0-3.0) Basophils (%) (Auto) 0.7 % (0.0-2.0) 0.6 % (0.0-2.0) Prothrombin Time 10.0 SEC (9.30-11.50) Prothromb Time International Ratio 0.9 (0.9-1.1) Activated Partial Thromboplast Time 24 SEC (23-33) Sodium Level 138 MMOL/L (136-145) 142 MMOL/L (136-145) Potassium Level 4.1 MMOL/L (3.5-5.1) 3.6 MMOL/L (3.5-5.1) Chloride Level 102 MMOL/L (98-107) 107 MMOL/L (98-107) Carbon Dioxide Level 26 MMOL/L (21-32) 24 MMOL/L (21-32) Anion Gap 10 mmol/L (5-15) 11 mmol/L (5-15) Blood Urea Nitrogen 12 mg/dL (7-18) 10 mg/dL (7-18) Creatinine 0.5 MG/DL (0.55-1.30) L 0.5 MG/DL (0.55-1.30) L Estimat Glomerular Filtration Rate > 60 mL/min (>60) > 60 mL/min (>60) Glucose Level 127 MG/DL (74-106) H 135 MG/DL (74-106) H Calcium Level 9.0 MG/DL (8.5-10.1) 8.8 MG/DL (8.5-10.1) Total Bilirubin 2.4 MG/DL (0.2-1.0) H Direct Bilirubin 1.8 MG/DL (0.0-0.3) H Aspartate Amino Transf (AST/SGOT) 629 U/L (15-37) H Alanine Aminotransferase (ALT/SGPT) 620 U/L (12-78) H Alkaline Phosphatase 185 U/L (46-116) H Total Protein 7.8 G/DL (6.4-8.2) Albumin 4.2 G/DL (3.4-5.0) Globulin 3.6 g/dL Albumin/Globulin Ratio 1.2 (1.0-2.7) Hemoglobin A1c 5.8 % (4.3-6.0) Triglycerides Level 90 MG/DL (30-150) Cholesterol Level 200 MG/DL (< 200) LDL Cholesterol 111 mg/dL (<100) H HDL Cholesterol 65 MG/DL (40-60) H Cholesterol/HDL Ratio 3.1 (3.3-4.4) L Amylase Level 461 U/L (25-115) H Lipase > 2000 U/L (73-393) H Thyroid Stimulating Hormone (TSH) 1.942 uiU/mL (0.358-3.740) Height (Feet): 5 Height (Inches): 0.00 Weight (Pounds): 160 Medications Current Medications Medications (Trade) Dose Ordered Sig/Rachana Route PRN Reason Start Time Stop Time Status Last Admin Dose Admin Acetaminophen (Tylenol) 650 mg Q4H PRN ORAL Mild Pain/Temp > 100.5 12/13/18 00:00 01/12/19 00:00 Dextrose/Sodium Chloride 1,000 ml @ 100 mls/hr Q10H IV 12/13/18 00:00 01/12/19 00:00 12/13/18 09:21 Heparin Sodium (Porcine) (Heparin 5000 units/ml) 5,000 units EVERY 12 HOURS SUBQ 12/13/18 09:00 01/12/19 08:59 12/13/18 08:22 Ondansetron HCl (Zofran) 4 mg Q6H PRN IVP Nausea & Vomiting 12/13/18 00:00 01/12/19 00:00 Pantoprazole (Protonix) 40 mg DAILY ORAL 12/13/18 09:00 01/12/19 08:59 12/13/18 08:17 Piperacillin Sod/ Tazobactam Sod 3.375 gm/Sodium Chloride 110 ml @ 27.5 mls/hr EVERY 8 HOURS IVPB 12/13/18 10:00 12/18/18 09:59 12/13/18 11:09 Tramadol HCl (Ultram) 50 mg Q6H PRN ORAL For Pain 12/13/18 00:00 12/20/18 00:00 Assessment/Plan Problem List: (1) Acute gallstone pancreatitis Assessment & Plan: 53-year-old female with acute gallstone pancreatitis and possible choledocholithiasis. Afebrile, hemodynamically stable, labs noted. No leukocytosis. Elevated bilirubin, AST, ALT, lipase, amylase. Fortunately is improved since given pain medication and IV fluids/IV antibiotics. GI evaluation noted. MRCP ordered. Potentially may need ERCP if has choledocholithiasis. N.p.o. IV fluids IV antibiotics Trend labs We will discuss lap scopic versus open cholecystectomy with patient and family once improved and prior to discharge given episode of acute gallstone pancreatitis. Thank you for this consultation we will follow with recommendations ICD Codes: K85.10 - Biliary acute pancreatitis without necrosis or infection SNOMED: 025494838 (2) Fatty liver ICD Codes: K76.0 - Fatty (change of) liver, not elsewhere classified SNOMED: 996807533 (3) Cholelithiasis ICD Codes: K80.20 - Calculus of gallbladder without cholecystitis without obstruction SNOMED: 402219853 (4) Elevated liver enzymes ICD Codes: R74.8 - Abnormal levels of other serum enzymes SNOMED: 503393135 (5) RUQ abdominal tenderness ICD Codes: R10.811 - Right upper quadrant abdominal tenderness SNOMED: 623626563 Salvador Perez Dec 13, 2018 13:38
[2018-12-13] MEDS ORDERED: Tubing IV Secondary IV ONE (14:57)
[2018-12-13] MEDS ORDERED: D5NS 1000ml IV ONE (14:57)
[2018-12-13 16:00] VITALS: BP 103/52
--- NOTE | 2018-12-13 18:13 | NUR ---
CASE MANAGEMENT: INITIAL REVIEW 53 YO F PRESENTED TO OUR ED FROM HOME CC: ABD PAIN PMHx: TOTAL HYSTERECTOMY. SI:CHOLEDOCHOLITHIASIS. T 98.6 HR 66 RR 15 B/P 135/81 SATS 97% ON RA CR 0.5 GLU 127 TBILI 2.4 DBILI 1.8 AST 629 ALT 620 ALP 185 IS: US ABD Hepatic steatosis. Cholelithiasis. No definite cholecystitis. PATIENT ADMITTED TO MED/SURG 12/12/2018 @ 2111 DCP:PATIENT TO BE DISCHARGED TO HOME ONCE MEDICALLY CLEARED. PLAN OF CARE: NPO GI CONSULT Addendum: 12/13/18 at 1914 by Jaclyn Alvarado CM INTERQUAL MET
--- NOTE | 2018-12-13 19:07 | Infectious Diseases Prog Note ---
Assessment/Plan Problems: (1) Cholelithiasis Assessment & Plan: with possible cholecystitis , may need cholecystectomy, continue zosyn empirically for now pending surgery , GI and surgery are following (2) Elevated liver enzymes Assessment & Plan: suspect due to the above , monitor LFT, may need ERCP for further eval of the CBD (3) Acute gallstone pancreatitis Assessment & Plan: due to the above , continue hydration and paian management, monitor lipase, keep NPO (4) RUQ abdominal tenderness Assessment & Plan: suspect due to the above, continue pain management as per primary Subjective Allergies: Coded Allergies: No Known Allergies (Unverified , 03/12/18) Objective Vital Signs Last 24 Hour Vital Signs Date Time Temp Pulse Resp B/P (MAP) Pulse Ox O2 Delivery O2 Flow Rate FiO2 12/13/18 16:00 99.6 67 19 103/52 (69) 96 12/13/18 12:00 99.1 65 17 128/74 (92) 98 12/13/18 09:00 Room Air 12/13/18 08:00 98.6 74 19 132/87 (102) 98 12/13/18 04:00 98.2 78 18 125/83 (97) 98 12/13/18 00:23 Room Air 12/12/18 23:34 98.3 12/12/18 23:26 98.3 76 18 119/79 (92) 98 12/12/18 23:10 98.2 82 16 138/72 96 Room Air 12/12/18 20:07 66 15 Room Air 12/12/18 20:07 98.6 68 15 135/81 97 Room Air 12/12/18 19:53 98.6 66 15 135/81 (99) 97 Room Air Height (Feet): 5 Height (Inches): 0.00 Weight (Pounds): 160 Laboratory Tests Test 12/12/18 20:00 12/12/18 20:18 12/13/18 07:34 Urine Color Brown Urine Appearance Clear Urine pH 6.5 (4.5-8.0) Urine Specific [place] 1.015 (1.005-1.035) Urine Protein 2+ (NEGATIVE) H Urine Glucose (UA) Negative (NEGATIVE) Urine Ketones 1+ (NEGATIVE) H Urine Blood Negative (NEGATIVE) Urine Nitrite Negative (NEGATIVE) Urine Bilirubin 2+ (NEGATIVE) H Urine Ictotest Positive (NEGATIVE) Urine Urobilinogen 4 MG/DL (0.0-1.0) H Urine Leukocyte Esterase 1+ (NEGATIVE) H Urine RBC 0 /HPF (0 - 2) Urine WBC 0-2 /HPF (0 - 2) Urine Squamous Epithelial Cells Occasional /LPF Urine Bacteria Few /HPF (NONE) White Blood Count 7.6 K/UL (4.8-10.8) 5.9 K/UL (4.8-10.8) Red Blood Count 4.27 M/UL (4.20-5.40) 4.28 M/UL (4.20-5.40) Hemoglobin 13.1 G/DL (12.0-16.0) 13.2 G/DL (12.0-16.0) Hematocrit 37.3 % (37.0-47.0) 38.8 % (37.0-47.0) Mean Corpuscular Volume 87 FL (80-99) 91 FL (80-99) Mean Corpuscular Hemoglobin 30.7 PG (27.0-31.0) 30.7 PG (27.0-31.0) Mean Corpuscular Hemoglobin Concent 35.1 G/DL (32.0-36.0) 33.9 G/DL (32.0-36.0) Red Cell Distribution Width 11.7 % (11.6-14.8) 12.2 % (11.6-14.8) Platelet Count 273 K/UL (150-450) 258 K/UL (150-450) Mean Platelet Volume 4.6 FL (6.5-10.1) L 5.2 FL (6.5-10.1) L Neutrophils (%) (Auto) 63.3 % (45.0-75.0) 69.0 % (45.0-75.0) Lymphocytes (%) (Auto) 26.1 % (20.0-45.0) 23.7 % (20.0-45.0) Monocytes (%) (Auto) 8.6 % (1.0-10.0) 5.5 % (1.0-10.0) Eosinophils (%) (Auto) 1.3 % (0.0-3.0) 1.2 % (0.0-3.0) Basophils (%) (Auto) 0.7 % (0.0-2.0) 0.6 % (0.0-2.0) Prothrombin Time 10.0 SEC (9.30-11.50) Prothromb Time International Ratio 0.9 (0.9-1.1) Activated Partial Thromboplast Time 24 SEC (23-33) Sodium Level 138 MMOL/L (136-145) 142 MMOL/L (136-145) Potassium Level 4.1 MMOL/L (3.5-5.1) 3.6 MMOL/L (3.5-5.1) Chloride Level 102 MMOL/L (98-107) 107 MMOL/L (98-107) Carbon Dioxide Level 26 MMOL/L (21-32) 24 MMOL/L (21-32) Anion Gap 10 mmol/L (5-15) 11 mmol/L (5-15) Blood Urea Nitrogen 12 mg/dL (7-18) 10 mg/dL (7-18) Creatinine 0.5 MG/DL (0.55-1.30) L 0.5 MG/DL (0.55-1.30) L Estimat Glomerular Filtration Rate > 60 mL/min (>60) > 60 mL/min (>60) Glucose Level 127 MG/DL (74-106) H 135 MG/DL (74-106) H Calcium Level 9.0 MG/DL (8.5-10.1) 8.8 MG/DL (8.5-10.1) Total Bilirubin 2.4 MG/DL (0.2-1.0) H Direct Bilirubin 1.8 MG/DL (0.0-0.3) H Aspartate Amino Transf (AST/SGOT) 629 U/L (15-37) H Alanine Aminotransferase (ALT/SGPT) 620 U/L (12-78) H Alkaline Phosphatase 185 U/L (46-116) H Total Protein 7.8 G/DL (6.4-8.2) Albumin 4.2 G/DL (3.4-5.0) Globulin 3.6 g/dL Albumin/Globulin Ratio 1.2 (1.0-2.7) Hemoglobin A1c 5.8 % (4.3-6.0) Triglycerides Level 90 MG/DL (30-150) Cholesterol Level 200 MG/DL (< 200) LDL Cholesterol 111 mg/dL (<100) H HDL Cholesterol 65 MG/DL (40-60) H Cholesterol/HDL Ratio 3.1 (3.3-4.4) L Amylase Level 461 U/L (25-115) H Lipase > 2000 U/L (73-393) H Thyroid Stimulating Hormone (TSH) 1.942 uiU/mL (0.358-3.740) Current Medications Medications (Trade) Dose Ordered Sig/Rachana Route PRN Reason Start Time Stop Time Status Last Admin Dose Admin Acetaminophen (Tylenol) 650 mg Q4H PRN ORAL Mild Pain/Temp > 100.5 12/13/18 00:00 01/12/19 00:00 Dextrose/Sodium Chloride 1,000 ml @ 100 mls/hr Q10H IV 12/13/18 00:00 01/12/19 00:00 12/13/18 09:21 Heparin Sodium (Porcine) (Heparin 5000 units/ml) 5,000 units EVERY 12 HOURS SUBQ 12/13/18 09:00 01/12/19 08:59 12/13/18 08:22 Ondansetron HCl (Zofran) 4 mg Q6H PRN IVP Nausea & Vomiting 12/13/18 00:00 01/12/19 00:00 Pantoprazole (Protonix) 40 mg DAILY ORAL 12/13/18 09:00 01/12/19 08:59 12/13/18 08:17 Piperacillin Sod/ Tazobactam Sod 3.375 gm/Sodium Chloride 110 ml @ 27.5 mls/hr EVERY 8 HOURS IVPB 12/13/18 10:00 12/18/18 09:59 12/13/18 11:09 Tramadol HCl (Ultram) 50 mg Q6H PRN ORAL For Pain 12/13/18 00:00 12/20/18 00:00 Nick Lora M.D. Dec 13, 2018 19:07
--- NOTE | 2018-12-13 19:38 | NUR ---
HAND-OFF: Report given to BRAYDEN Russell.
[2018-12-13 20:00] VITALS: BP 131/78
[2018-12-14 04:00] VITALS: BP 97/52
[2018-12-14] MEDS: Piperacillin/Tazobactam 3.375 GM in NS 110 ML IVPB SCH ×3 (05:52→20:50)
[2018-12-14 06:34] LABS: BASOPHILS % (AUTO) 0.5 % (0.0-2.0); EOSINOPHILS % (AUTO) 2.7 % (0.0-3.0); HEMATOCRIT 35.7 % (37.0-47.0); HEMOGLOBIN 12.3 G/DL (12.0-16.0); LYMPHOCYTES % (AUTO) 29.5 % (20.0-45.0); MEAN CORPUSCULAR VOLUME 91 FL (80-99); MONOCYTES % (AUTO) 6.2 % (1.0-10.0); NEUTROPHILS % (AUTO) 61.2 % (45.0-75.0); PLATELET COUNT 233 K/UL (150-450); RED BLOOD COUNT 3.92 M/UL (4.20-5.40); RED CELL DISTRIBUTION WIDTH 11.8 % (11.6-14.8); WHITE BLOOD COUNT 6.5 K/UL (4.8-10.8)
[2018-12-14 06:53] LABS: ALANINE AMINOTRANSFERASE 401 U/L (12-78); ALBUMIN 3.3 G/DL (3.4-5.0); ALBUMIN/GLOBULIN RATIO 0.9 (1.0-2.7); ALKALINE PHOSPHATASE 167 U/L (46-116); ANION GAP 10 mmol/L (5-15); ASPARTATE AMINO TRANSFERASE 208 U/L (15-37); BLOOD UREA NITROGEN 9 mg/dL (7-18); CALCIUM 8.7 MG/DL (8.5-10.1); CARBON DIOXIDE 25 MMOL/L (21-32); CHLORIDE 105 MMOL/L (98-107); CREATININE 0.5 MG/DL (0.55-1.30); POTASSIUM 3.2 MMOL/L (3.5-5.1); SODIUM 139 MMOL/L (136-145)
[2018-12-14 06:58] LABS: AMYLASE 117 U/L (25-115)
[2018-12-14] MEDS: D5NS 1,000 ML IV SCH ×2 (07:00→13:28)
--- NOTE | 2018-12-14 07:12 | General Progress Note ---
Assessment/Plan Problem List: (1) RUQ abdominal tenderness ICD Codes: R10.811 - Right upper quadrant abdominal tenderness SNOMED: 610507763 (2) Elevated liver enzymes ICD Codes: R74.8 - Abnormal levels of other serum enzymes SNOMED: 537646984 (3) Fatty liver ICD Codes: K76.0 - Fatty (change of) liver, not elsewhere classified SNOMED: 666698472 (4) Cholelithiasis ICD Codes: K80.20 - Calculus of gallbladder without cholecystitis without obstruction SNOMED: 267243962 Assessment/Plan: MRCP repeat labs ERCP if needed abx surg consult gallstone pancreatitis>>> improving LFTS, ? passed stone doubt will need ERCP Subjective ROS Limited/Unobtainable: Yes Allergies: Coded Allergies: No Known Allergies (Unverified , 03/12/18) Objective Last 24 Hour Vital Signs Date Time Temp Pulse Resp B/P (MAP) Pulse Ox O2 Delivery O2 Flow Rate FiO2 12/14/18 04:00 99.2 73 19 97/52 (67) 99 12/13/18 21:00 Room Air 12/13/18 20:00 98.3 67 18 131/78 (95) 96 12/13/18 16:00 99.6 67 19 103/52 (69) 96 12/13/18 12:00 99.1 65 17 128/74 (92) 98 12/13/18 09:00 Room Air 12/13/18 08:00 98.6 74 19 132/87 (102) 98 Intake and Output 12/13/18 12/14/18 19:00 07:00 Intake Total 860.0 ml 582.5 ml Balance 860.0 ml 582.5 ml Intake IV Total 860.0 ml 582.5 ml # Voids 1 Laboratory Tests 12/13/18 07:34: White Blood Count 5.9, Red Blood Count 4.28, Hemoglobin 13.2, Hematocrit 38.8, Mean Corpuscular Volume 91, Mean Corpuscular Hemoglobin 30.7, Mean Corpuscular Hemoglobin Concent 33.9, Red Cell Distribution Width 12.2, Platelet Count 258, Mean Platelet Volume 5.2L, Neutrophils (%) (Auto) 69.0, Lymphocytes (%) (Auto) 23.7, Monocytes (%) (Auto) 5.5, Eosinophils (%) (Auto) 1.2, Basophils (%) (Auto ) 0.6, Sodium Level 142, Potassium Level 3.6, Chloride Level 107, Carbon Dioxide Level 24, Anion Gap 11, Blood Urea Nitrogen 10, Creatinine 0.5L, Estimat Glomerular Filtration Rate > 60, Glucose Level 135H, Hemoglobin A1c 5.8 , Calcium Level 8.8, Triglycerides Level 90, Cholesterol Level 200, LDL Cholesterol 111H, HDL Cholesterol 65H, Cholesterol/HDL Ratio 3.1L, Amylase Level 461H, Lipase > 2000H, Thyroid Stimulating Hormone (TSH) 1.942 12/14/18 05:30: White Blood Count 6.5, Red Blood Count 3.92L, Hemoglobin 12.3, Hematocrit 35.7L , Mean Corpuscular Volume 91, Mean Corpuscular Hemoglobin 31.5H, Mean Corpuscular Hemoglobin Concent 34.5, Red Cell Distribution Width 11.8, Platelet Count 233, Mean Platelet Volume 5.6L, Neutrophils (%) (Auto) 61.2, Lymphocytes ( %) (Auto) 29.5, Monocytes (%) (Auto) 6.2, Eosinophils (%) (Auto) 2.7, Basophils (%) (Auto) 0.5, Sodium Level 139, Potassium Level 3.2L, Chloride Level 105, Carbon Dioxide Level 25, Anion Gap 10, Blood Urea Nitrogen 9, Creatinine 0.5L, Estimat Glomerular Filtration Rate > 60, Glucose Level 128H, Calcium Level 8.7, Amylase Level 117H, Lipase 371, Total Bilirubin 1.0, Aspartate Amino Transf (AST /SGOT) 208H, Alanine Aminotransferase (ALT/SGPT) 401H, Alkaline Phosphatase 167H , Total Protein 6.9, Albumin 3.3L, Globulin 3.6, Albumin/Globulin Ratio 0.9L Height (Feet): 5 Height (Inches): 0.00 Weight (Pounds): 160 General Appearance: alert EENT: normal ENT inspection Neck: supple Cardiovascular: normal rate Respiratory/Chest: lungs clear Abdomen: normal bowel sounds, non tender, soft Extremities: non-tender Frank Hayward MD Dec 14, 2018 07:12
--- NOTE | 2018-12-14 07:36 | NUR ---
HAND-OFF: Report given to BRAYDEN HOPPER.
[2018-12-14 08:00] VITALS: BP 117/65
--- NOTE | 2018-12-14 08:00 | NUR ---
NURSE NOTES: received pt in bed, room air, asleep, no sign of distress. Family member at the bedside. IV atb running at RAC, no sign of infiltration noted. Pt is NPO, sign posted at the bed. Bed locked at the lowest position possible, call light within easy reach, siderails up x3. Will continue to monitor pt and follow up with the plan of care.
[2018-12-14] MEDS: Heparin 5000 units/ml inj SUBQ SCH ×2 (09:40→20:50)
--- NOTE | 2018-12-14 10:15 | NUR ---
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
--- NOTE | 2018-12-14 11:07 | NUR ---
Concerning MRI..pt can not stay still for exam, too restless inside scanner. BRAYDEN Augustine has been informed. leandro 11:00 Addendum: 12/14/18 at 1109 by LUPIS DEWITT Ignore the above comment, it was meant for a different pt. This pt completed her MRCP.
[2018-12-14 12:00] VITALS: BP 114/62
--- NOTE | 2018-12-14 14:02 | General Progress Note ---
Assessment/Plan Assessment/Plan: S: My pain is better O: seems comfortable, at the bed side PHYSICAL EXAMINATION:HEAD AND NECK: Atraumatic and normocephalic. CHEST: Clear to auscultation.HEART: S1, S2. Regular rate and rhythm. ABDOMEN: Soft. No organomegaly. Positive for the guarding on deep palpation in the right upper quadrant. Negative for rebound tenderness. MUSCULOSKELETAL: No gross lateralized motor deficit. NEUROLOGY: Awake, alert, and oriented x3. Meds: Reviewed and reconcilled in the chart Imaging, abdominal ultrasound dated December 12, 2018, shows cholelithiasis with no evidence of acute cholecystitis. ASSESSMENT: 1- Acute Biliary colic 2. Acute labile biliary pancreatitis 3. Abnormal LFT. 4. Direct hyperbilirubinemia. 5. GI and DVT prophylaxis. Plan: GI, surgeon and ID notes are reviewed Once clear by GI, may followup as outpatient Subjective Allergies: Coded Allergies: No Known Allergies (Unverified , 03/12/18) Objective Last 24 Hour Vital Signs Date Time Temp Pulse Resp B/P (MAP) Pulse Ox O2 Delivery O2 Flow Rate FiO2 12/14/18 12:00 98.4 63 20 114/62 (79) 100 12/14/18 09:00 Room Air 12/14/18 08:00 98.5 65 18 117/65 (82) 95 12/14/18 04:00 99.2 73 19 97/52 (67) 99 12/13/18 21:00 Room Air 12/13/18 20:00 98.3 67 18 131/78 (95) 96 12/13/18 16:00 99.6 67 19 103/52 (69) 96 Intake and Output 12/13/18 12/14/18 19:00 07:00 Intake Total 860.0 ml 582.5 ml Balance 860.0 ml 582.5 ml Intake IV Total 860.0 ml 582.5 ml # Voids 1 Laboratory Tests 12/14/18 05:30: White Blood Count 6.5, Red Blood Count 3.92L, Hemoglobin 12.3, Hematocrit 35.7L , Mean Corpuscular Volume 91, Mean Corpuscular Hemoglobin 31.5H, Mean Corpuscular Hemoglobin Concent 34.5, Red Cell Distribution Width 11.8, Platelet Count 233, Mean Platelet Volume 5.6L, Neutrophils (%) (Auto) 61.2, Lymphocytes ( %) (Auto) 29.5, Monocytes (%) (Auto) 6.2, Eosinophils (%) (Auto) 2.7, Basophils (%) (Auto) 0.5, Sodium Level 139, Potassium Level 3.2L, Chloride Level 105, Carbon Dioxide Level 25, Anion Gap 10, Blood Urea Nitrogen 9, Creatinine 0.5L, Estimat Glomerular Filtration Rate > 60, Glucose Level 128H, Calcium Level 8.7, Total Bilirubin 1.0, Aspartate Amino Transf (AST/SGOT) 208H, Alanine Aminotransferase (ALT/SGPT) 401H, Alkaline Phosphatase 167H, Total Protein 6.9, Albumin 3.3L, Globulin 3.6, Albumin/Globulin Ratio 0.9L, Amylase Level 117H, Lipase 371 Height (Feet): 5 Height (Inches): 0.00 Weight (Pounds): 160 Juana Gomez MD Dec 14, 2018 14:02
--- NOTE | 2018-12-14 15:09 | Diagnostic Imaging Report ---
Indication: Right upper quadrant abdominal pain. Technique: MRI of the abdomen was performed in a 1.5 Debbie magnet. Pulse sequences obtained include coronal and axial T2 single shot fast spin echo breathhold and respiratory gated coronal T2 3-D M.R.C.P.; this data set was displayed in different projections or MIPs. In addition, multiple coronal oblique thin T2 weighted, fat saturated SE sequences obtained through the CBD. Comparison: None Findings: There is no biliary ductal dilatation or evidence of choledocholithiasis. CBD is about 6 mm. Multiple gallstones are present. Gallbladder wall thickening is present. Pancreatic duct is unremarkable. There is no free fluid identified within the visualized abdomen. Liver fatty signal alteration also noted diffusely. IMPRESSION: Cholelithiasis. Mild gallbladder wall thickening. Cholecystitis not excluded. No evidence of biliary ductal dilatation or choledocholithiasis. Fatty infiltration of the liver
[2018-12-14 16:00] VITALS: BP 122/75
--- NOTE | 2018-12-14 16:52 | Surgery Progress Note ---
Surgery Progress Note Subjective Additional Comments afebrile, HD stable, labs improved, MRCP noted. exam stable. Objective Last 24 Hour Vital Signs Date Time Temp Pulse Resp B/P (MAP) Pulse Ox O2 Delivery O2 Flow Rate FiO2 12/14/18 12:00 98.4 63 20 114/62 (79) 100 12/14/18 09:00 Room Air 12/14/18 08:00 98.5 65 18 117/65 (82) 95 12/14/18 04:00 99.2 73 19 97/52 (67) 99 12/13/18 21:00 Room Air 12/13/18 20:00 98.3 67 18 131/78 (95) 96 I&O Intake and Output 12/13/18 12/14/18 19:00 07:00 Intake Total 860.0 ml 730.0 ml Balance 860.0 ml 730.0 ml Intake Oral 120 ml IV Total 860.0 ml 610.0 ml # Voids 1 Cardiovascular: RSR Respiratory: clear Abdomen: soft, non-tender, present bowel sounds Extremities: no tenderness, no cyanosis Laboratory Tests Test 12/14/18 05:30 White Blood Count 6.5 K/UL (4.8-10.8) Red Blood Count 3.92 M/UL (4.20-5.40) L Hemoglobin 12.3 G/DL (12.0-16.0) Hematocrit 35.7 % (37.0-47.0) L Mean Corpuscular Volume 91 FL (80-99) Mean Corpuscular Hemoglobin 31.5 PG (27.0-31.0) H Mean Corpuscular Hemoglobin Concent 34.5 G/DL (32.0-36.0) Red Cell Distribution Width 11.8 % (11.6-14.8) Platelet Count 233 K/UL (150-450) Mean Platelet Volume 5.6 FL (6.5-10.1) L Neutrophils (%) (Auto) 61.2 % (45.0-75.0) Lymphocytes (%) (Auto) 29.5 % (20.0-45.0) Monocytes (%) (Auto) 6.2 % (1.0-10.0) Eosinophils (%) (Auto) 2.7 % (0.0-3.0) Basophils (%) (Auto) 0.5 % (0.0-2.0) Sodium Level 139 MMOL/L (136-145) Potassium Level 3.2 MMOL/L (3.5-5.1) L Chloride Level 105 MMOL/L (98-107) Carbon Dioxide Level 25 MMOL/L (21-32) Anion Gap 10 mmol/L (5-15) Blood Urea Nitrogen 9 mg/dL (7-18) Creatinine 0.5 MG/DL (0.55-1.30) L Estimat Glomerular Filtration Rate > 60 mL/min (>60) Glucose Level 128 MG/DL (74-106) H Calcium Level 8.7 MG/DL (8.5-10.1) Total Bilirubin 1.0 MG/DL (0.2-1.0) Aspartate Amino Transf (AST/SGOT) 208 U/L (15-37) H Alanine Aminotransferase (ALT/SGPT) 401 U/L (12-78) H Alkaline Phosphatase 167 U/L (46-116) H Total Protein 6.9 G/DL (6.4-8.2) Albumin 3.3 G/DL (3.4-5.0) L Globulin 3.6 g/dL Albumin/Globulin Ratio 0.9 (1.0-2.7) L Amylase Level 117 U/L (25-115) H Lipase 371 U/L (73-393) Plan Problems: (1) Acute gallstone pancreatitis Assessment & Plan: 53-year-old female with acute gallstone pancreatitis and possible choledocholithiasis. Afebrile, hemodynamically stable, labs noted. No leukocytosis. Elevated bilirubin, AST, ALT, lipase, amylase. Fortunately is improved since given pain medication and IV fluids/IV antibiotics. MRCP noted and okay N.p.o. IV fluids IV antibiotics Trend labs lap scopic versus open cholecystectomy with patient and family once improved and prior to discharge given episode of acute gallstone pancreatitis. discussed with family and patient today pending family decision Thank you for this consultation we will follow with recommendations (2) Fatty liver (3) Cholelithiasis (4) Elevated liver enzymes (5) RUQ abdominal tenderness Salvador Perez Dec 14, 2018 16:52
--- NOTE | 2018-12-14 18:30 | Infectious Diseases Prog Note ---
Assessment/Plan Problems: (1) Cholelithiasis Assessment & Plan: with possible cholecystitis , may need cholecystectomy, continue zosyn empirically for now pending work up , GI and surgery are following (2) Elevated liver enzymes Assessment & Plan: suspect due to the above , monitor LFT, may need ERCP for further eval of the CBD and for source control (3) Acute gallstone pancreatitis Assessment & Plan: due to the above , continue hydration and paian management, monitor lipase, keep NPO (4) RUQ abdominal tenderness Assessment & Plan: suspect due to the above, continue pain management as per primary Subjective Constitutional: Reports: no symptoms HEENT: Reports: no symptoms Respiratory: Reports: no symptoms Breasts: Reports: no symptoms Cardiovascular: Reports: no symptoms Gastrointestinal/Abdominal: Reports: nausea, bloating Genitourinary: Reports: no symptoms Neurologic: Reports: no symptoms Psychiatric: Reports: no symptoms Skin: Reports: no symptoms Endocrine: Reports: no symptoms Hematologic: Reports: no symptoms Musculoskeletal: Reports: no symptoms Allergies: Coded Allergies: No Known Allergies (Unverified , 03/12/18) Objective Vital Signs Last 24 Hour Vital Signs Date Time Temp Pulse Resp B/P (MAP) Pulse Ox O2 Delivery O2 Flow Rate FiO2 12/14/18 16:00 98.2 74 18 122/75 (91) 97 12/14/18 12:00 98.4 63 20 114/62 (79) 100 12/14/18 09:00 Room Air 12/14/18 08:00 98.5 65 18 117/65 (82) 95 12/14/18 04:00 99.2 73 19 97/52 (67) 99 12/13/18 21:00 Room Air 12/13/18 20:00 98.3 67 18 131/78 (95) 96 Height (Feet): 5 Height (Inches): 0.00 Weight (Pounds): 160 General Appearance: WD/WN, no acute distress HEENT: normocephalic, atraumatic, anicteric, mucous membranes moist, PERRL, EOMI, pharynx normal, supple, no JVD Respiratory/Chest: chest wall non-tender, lungs clear, normal breath sounds, no respiratory distress, no accessory muscle use Cardiovascular: normal peripheral pulses, normal rate, regular rhythm, no gallop/murmur, no JVD Abdomen: no organomegaly, non distended, no mass, no scars, hypoactive bowel sounds, tender Extremities: no cyanosis, no clubbing Skin: no rash, no lesions, no ulcers Neurologic/Psychiatric: pens and pencils dipper II-XII grossly normal, no motor/sensory deficits, alert, responsive Lymphatic: no neck adenopathy, no groin adenopathy Musculoskeletal: normal muscle bulk, no effusion Laboratory Tests Test 12/14/18 05:30 White Blood Count 6.5 K/UL (4.8-10.8) Red Blood Count 3.92 M/UL (4.20-5.40) L Hemoglobin 12.3 G/DL (12.0-16.0) Hematocrit 35.7 % (37.0-47.0) L Mean Corpuscular Volume 91 FL (80-99) Mean Corpuscular Hemoglobin 31.5 PG (27.0-31.0) H Mean Corpuscular Hemoglobin Concent 34.5 G/DL (32.0-36.0) Red Cell Distribution Width 11.8 % (11.6-14.8) Platelet Count 233 K/UL (150-450) Mean Platelet Volume 5.6 FL (6.5-10.1) L Neutrophils (%) (Auto) 61.2 % (45.0-75.0) Lymphocytes (%) (Auto) 29.5 % (20.0-45.0) Monocytes (%) (Auto) 6.2 % (1.0-10.0) Eosinophils (%) (Auto) 2.7 % (0.0-3.0) Basophils (%) (Auto) 0.5 % (0.0-2.0) Sodium Level 139 MMOL/L (136-145) Potassium Level 3.2 MMOL/L (3.5-5.1) L Chloride Level 105 MMOL/L (98-107) Carbon Dioxide Level 25 MMOL/L (21-32) Anion Gap 10 mmol/L (5-15) Blood Urea Nitrogen 9 mg/dL (7-18) Creatinine 0.5 MG/DL (0.55-1.30) L Estimat Glomerular Filtration Rate > 60 mL/min (>60) Glucose Level 128 MG/DL (74-106) H Calcium Level 8.7 MG/DL (8.5-10.1) Total Bilirubin 1.0 MG/DL (0.2-1.0) Aspartate Amino Transf (AST/SGOT) 208 U/L (15-37) H Alanine Aminotransferase (ALT/SGPT) 401 U/L (12-78) H Alkaline Phosphatase 167 U/L (46-116) H Total Protein 6.9 G/DL (6.4-8.2) Albumin 3.3 G/DL (3.4-5.0) L Globulin 3.6 g/dL Albumin/Globulin Ratio 0.9 (1.0-2.7) L Amylase Level 117 U/L (25-115) H Lipase 371 U/L (73-393) Current Medications Medications (Trade) Dose Ordered Sig/Rachana Route PRN Reason Start Time Stop Time Status Last Admin Dose Admin Acetaminophen (Tylenol) 650 mg Q4H PRN ORAL Mild Pain/Temp > 100.5 12/13/18 00:00 01/12/19 00:00 Dextrose/Sodium Chloride 1,000 ml @ 100 mls/hr Q10H IV 12/13/18 00:00 01/12/19 00:00 12/14/18 13:28 Heparin Sodium (Porcine) (Heparin 5000 units/ml) 5,000 units EVERY 12 HOURS SUBQ 12/13/18 09:00 01/12/19 08:59 12/14/18 09:40 Ondansetron HCl (Zofran) 4 mg Q6H PRN IVP Nausea & Vomiting 12/13/18 00:00 01/12/19 00:00 Pantoprazole (Protonix) 40 mg DAILY ORAL 12/13/18 09:00 01/12/19 08:59 12/14/18 09:33 Piperacillin Sod/ Tazobactam Sod 3.375 gm/Sodium Chloride 110 ml @ 27.5 mls/hr EVERY 8 HOURS IVPB 12/13/18 10:00 12/18/18 09:59 12/14/18 13:26 Tramadol HCl (Ultram) 50 mg Q6H PRN ORAL For Pain 12/13/18 00:00 12/20/18 00:00 Nick Lora M.D. Dec 14, 2018 18:30
--- NOTE | 2018-12-14 19:52 | NUR ---
NURSE NOTES: Received patient awake,alert,verbal resting in bed,no complaints, at bedside.
[2018-12-14 20:00] VITALS: BP 139/73
--- NOTE | 2018-12-14 23:00 | Consultation ---
DATE OF CONSULTATION: 12/13/2018 INFECTIOUS DISEASE CONSULTATION CONSULTING PHYSICIAN: Nick Lora M.D. REQUESTING PHYSICIAN: Juana Gomez M.D. REASON FOR CONSULTATION: Acute cholecystitis and possible cholangitis. Recommendation for antibiotics treatment. HISTORY OF PRESENT ILLNESS: The patient is a 53-year-old female with past medical history of gallstone presented to [facility] emergency room complaining of right upper quadrant abdominal pain for almost three months on and off radiating to her back. The patient has visited [place] almost 4 weeks ago and she had an ultrasound done over there which showed evidence of gallstone. The patient was then not able to schedule followup with her primary care provider [place] due to medical insurance issue. So, she could not have any further evaluation. The patient was complaining of discomfort in the right upper quadrant and the epigastric area. No nausea or vomiting. No diarrhea. No blood in the stool. No fever or chills. The patient has been taking Advil to control her pain. In the ED, her temperature was 98.6 with blood pressure of 135/81 and pulse of 66. The patient's workup revealed elevated liver enzymes and elevated lipase compatible with gallstone pancreatitis. So, she was started on Zosyn for possible cholecystitis and cholangitis and Infectious Disease consultation was requested for antibiotics treatment and further management. REVIEW OF SYSTEMS: A 14-point of system reviewed were all negative apart from the one I mentioned above in my History and Physical. PAST MEDICAL HISTORY: Significant for gallstone. PAST SURGICAL HISTORY: She had total hysterectomy 15 years ago. MEDICATIONS: She is on Zosyn. For the rest of her medications, please refer to MAR. ALLERGIES: No known drug allergies. FAMILY HISTORY: Not contributory. 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 Lives with . Denied using any drugs, tobacco, or alcohol. LABORATORY AND DIAGNOSTIC DATA: Labs showed white count of 5.9, hemoglobin of 13.2, hematocrit of 38.8, and platelet count of 258,000 . BUN of 10 and creatinine of 0.5. T of 629, ALT of 620, and alkaline phosphatase of 185. Lipase level more than 2000. Urinalysis showed +1 leukocyte esterase, +2 bilirubin, and +1 ketones. IMAGIN. Abdominal ultrasound on admission showed hepatic steatosis and cholelithiasis. No definite cholecystitis. 2. Chest x-ray showed no acute cardiopulmonary process. PHYSICAL EXAMINATION: VITAL SIGNS: Temperature 99.1, pulse 65, respirations 17, blood pressure 128/74, and saturation 98% on room air. GENERAL: A middle-aged female, obese, lying in bed, awake, alert, and not in acute distress. HEENT: Normocephalic and atraumatic. Pupils are reactive to light. Moist oral mucosa. No exudate. NECK: Supple. No lymphadenopathy. CARDIOVASCULAR: Regular rate and rhythm. No murmur or gallop. LUNGS: Clear bilaterally. No wheezing or rhonchi. ABDOMEN: Soft and nontender. No masses. No organomegaly. Normal bowel sounds. EXTREMITY: No edema or cyanosis. SKIN: No rash. No hives. Normal texture. No lesion. NEURO: Nonfocal. ASSESSMENT AND RECOMMENDATIONS: 1. Cholelithiasis, possible cholecystitis, may need cholecystectomy. Continue Zosyn empirically for now pending further surgical workup. Gastrointestinal and Surgery are following. 2. Elevated liver enzymes, suspect due to the above. Possible passing stone. Monitor liver function tests. May need endoscopic retrograde cholangiopancreatography for further evaluation of the common bile duct. 3. Acute gallstone pancreatitis due to the above. Continue hydration and pain management. Monitor lipase. Keep NPO for now. 4. Right upper quadrant abdominal tenderness. Suspect due to the above. Continue pain management as per primary team. Thank you for the consult. ID will continue to follow. Nick Lora M.D. DR: JAN JOB#: [id number] CC:
[2018-12-15] VITALS (18 sets, daily range): BP systolic 103–137; BP diastolic 44–73
[2018-12-15] MEDS: D5NS 1,000 ML IV SCH ×2 (02:00→12:00)
[2018-12-15] MEDS: Piperacillin/Tazobactam 3.375 GM in NS 110 ML IVPB SCH ×3 (04:12→21:01)
[2018-12-15 06:40] LABS: BASOPHILS % (AUTO) 1.1 % (0.0-2.0); EOSINOPHILS % (AUTO) 2.3 % (0.0-3.0); HEMATOCRIT 37.2 % (37.0-47.0); HEMOGLOBIN 12.7 G/DL (12.0-16.0); LYMPHOCYTES % (AUTO) 34.9 % (20.0-45.0); MEAN CORPUSCULAR VOLUME 91 FL (80-99); MONOCYTES % (AUTO) 6.1 % (1.0-10.0); NEUTROPHILS % (AUTO) 55.6 % (45.0-75.0); PLATELET COUNT 251 K/UL (150-450); RED BLOOD COUNT 4.09 M/UL (4.20-5.40); RED CELL DISTRIBUTION WIDTH 12.5 % (11.6-14.8); WHITE BLOOD COUNT 5.4 K/UL (4.8-10.8)
[2018-12-15 06:43] LABS: ALANINE AMINOTRANSFERASE 296 U/L (12-78); ALBUMIN 3.3 G/DL (3.4-5.0); ALBUMIN/GLOBULIN RATIO 0.8 (1.0-2.7); ALKALINE PHOSPHATASE 156 U/L (46-116); ANION GAP 12 mmol/L (5-15); ASPARTATE AMINO TRANSFERASE 106 U/L (15-37); BILIRUBIN,TOTAL 0.9 MG/DL (0.2-1.0); BLOOD UREA NITROGEN 10 mg/dL (7-18); CALCIUM 9.5 MG/DL (8.5-10.1); CARBON DIOXIDE 25 MMOL/L (21-32); CHLORIDE 106 MMOL/L (98-107); CREATININE 0.6 MG/DL (0.55-1.30); SODIUM 143 MMOL/L (136-145)
--- NOTE | 2018-12-15 07:24 | NUR ---
HAND-OFF: Report given to Maria Isabel Comer RN.
--- NOTE | 2018-12-15 07:50 | NUR ---
NURSE NOTES: Received report from BRAYDEN Simmons. Pt sitting at edge of bed, family at bedside, no complaints of pain, pt is NPO for possible lab leela today, discussed plan of care. Pt is calm and in no apparent distress, bed in lowest position, call light within reach. Pt is not on surgery schedule today. RN contacted surgical department, not on schedule at this time, RN contacted Dr. Perez asking if pt will be added to surgical schedule and notified that consent is signed
[2018-12-15] MEDS: Heparin 5000 units/ml inj SUBQ SCH ×2 (07:56→21:02)
--- NOTE | 2018-12-15 08:39 | NUR ---
NURSE NOTES: Dr. Perez will try for 10am lap leela. Rn completed pre-op checklist. Surgery called, asking about CM for pt.
[2018-12-15] MEDS ORDERED: Iothalamate Meglumine 60% 30ML INJ ONE (09:31)
[2018-12-15] MEDS ORDERED: NS Irrig 1000ml IRRIG ONE ×2 (09:44→10:40)
[2018-12-15] MEDS ORDERED: Midazolam 2mg/2ml Inj ONE (09:51)
[2018-12-15] MEDS ORDERED: fentaNYL 100 mcg/2 mL IV ONE (09:51)
[2018-12-15] MEDS ORDERED: Lidocaine 1% MPF 10mg/ml 5ml ONE (09:53)
[2018-12-15] MEDS ORDERED: LR 1000ml ONE (10:00)
[2018-12-15] MEDS ORDERED: Sterile Water Irrig 1000ml IRRIG ONE (10:00)
[2018-12-15] MEDS ORDERED: NS Irrig 1000ml ONE (10:00)
[2018-12-15] MEDS ORDERED: Zemuron 50mg/5ml Inj IV ONE (10:00)
[2018-12-15] MEDS ORDERED: Propofol 200mg/20ml IV ONE (10:00)
[2018-12-15] MEDS ORDERED: Succinylcholine 20mg/ml 10ml vial ONE (10:00)
--- NOTE | 2018-12-15 10:32 | Pre-Procedure Note/Attestation ---
Pre-Procedure Note/Attestation Complete Prior to Procedure Planned Procedure: not applicable Procedure Narrative: laparoscopic cholecystectomy possible open. Indications for Procedure Pre-Operative Diagnosis: acute gallstone pancreatitis Attestation I attest that I discussed the nature of the procedure; its benefits; risks and complications; and alternatives (and the risks and benefits of such alternatives ), prior to the procedure, with the patient (or the patient's legal fuels sales representative). I attest that, if there was a reasonable possibility of needing a blood transfusion, the patient (or the patient's legal fuels sales representative) was given the [facility] standardized written summary, pursuant to the Vishal Coldiron Blood Safety Act ([place] Health and Safety Code # 1645, as amended). I attest that I re-evaluated the patient just prior to the surgery and that there has been no change in the patient's H&P, except as documented below: Salvador Perez Dec 15, 2018 10:32
[2018-12-15] MEDS ORDERED: Glycopyrrolate 0.2mg/ml 1ml Vial ONE (11:01)
[2018-12-15] MEDS ORDERED: Ketorolac 30mg Inj ONE (11:01)
[2018-12-15] MEDS ORDERED: Neostigmine 1mg/ml 10ml Inj ONE (11:01)
[2018-12-15] MEDS ORDERED: Surgicel 4in x 8in TOPIC ONE (11:06)
[2018-12-15] MEDS ORDERED: LR 1000ml 1,000 ML IVLG SCH (11:09)
--- NOTE | 2018-12-15 11:09 | Anethesia Preoperative Eval ---
Anesthesia Pre-op PMH/ROS General Date of Evaluation: Dec 15, 2018 Time of Evaluation: 10:10 Anesthesiologist: Dorothy ASA Score: ASA 2 Mallampati Score Class I : Soft palate, uvula, fauces, pillars visible Class II: Soft palate, uvula, fauces visible Class III: Soft palate, base of uvula visible Class IV: Only hard plate visible Mallampati Classification: Class II Surgeon: Mimi Diagnosis: Symptomatic cholelithiasis Surgical Procedure: Lap cholecystectomy Anesthesia History: none Family History: no anesthesia problems Allergies: Coded Allergies: No Known Allergies (Unverified , 03/12/18) Medications: see eMAR Patient NPO?: Yes NPO Date: Dec 12, 2018 NPO Time: 1200 Past Medical History Cardiovascular: Denies: HTN, CAD, MD, valve dz, arrhythmia, other Pulmonary: Denies: asthma, COPD, RAFITA, other Gastrointestinal/Genitourinary: Reports: GERD; Denies: CRI, ESRD, other Neurologic/Psychiatric: Reports: depression/anxiety; Denies: dementia, CVA, TIA, other Endocrine: Denies: DM, hypothyroidism, steroids, other HEENT: Denies: cataract (L), cataract (R), glaucoma, QUINAULT (L), QUINAULT (R), other Hematology/Immune: Denies: anemia, DVT, bleeding disorder, other Musculoskeletal/Integumentary: Denies: OA, RA, DJD, DDD, edema, other Other: other - overweight PMH Narrative: as above PSxH Narrative: hysterectomy Anesthesia Pre-op Phys. Exam Physician Exam Last Vital Signs Date Time Temp Pulse Resp B/P (MAP) Pulse Ox O2 Delivery O2 Flow Rate FiO2 12/15/18 09:00 Room Air 12/15/18 08:00 98.0 65 18 113/70 (84) 99 Constitutional: NAD Neurologic: CN 2-12 intact Cardiovascular: RRR, no M/R/G Respiratory: CTA Gastrointestinal: S/NT/ND Airway Exam Mallampati Score: Class II MO: full Neck: flexible ROM: full Teeth: missing Dentures: no upper, no lower Anesthesia Pre-op A/P Labs Hematology Test 12/15/18 04:50 White Blood Count 5.4 K/UL (4.8-10.8) Red Blood Count 4.09 M/UL (4.20-5.40) L Hemoglobin 12.7 G/DL (12.0-16.0) Hematocrit 37.2 % (37.0-47.0) Mean Corpuscular Volume 91 FL (80-99) Mean Corpuscular Hemoglobin 31.1 PG (27.0-31.0) H Mean Corpuscular Hemoglobin Concent 34.2 G/DL (32.0-36.0) Red Cell Distribution Width 12.5 % (11.6-14.8) Platelet Count 251 K/UL (150-450) Mean Platelet Volume 5.1 FL (6.5-10.1) L Neutrophils (%) (Auto) 55.6 % (45.0-75.0) Lymphocytes (%) (Auto) 34.9 % (20.0-45.0) Monocytes (%) (Auto) 6.1 % (1.0-10.0) Eosinophils (%) (Auto) 2.3 % (0.0-3.0) Basophils (%) (Auto) 1.1 % (0.0-2.0) Chemistry Test 12/15/18 04:50 Sodium Level 143 MMOL/L (136-145) Potassium Level 4.0 MMOL/L (3.5-5.1) Chloride Level 106 MMOL/L (98-107) Carbon Dioxide Level 25 MMOL/L (21-32) Anion Gap 12 mmol/L (5-15) Blood Urea Nitrogen 10 mg/dL (7-18) Creatinine 0.6 MG/DL (0.55-1.30) Estimat Glomerular Filtration Rate > 60 mL/min (>60) Glucose Level 92 MG/DL (74-106) Calcium Level 9.5 MG/DL (8.5-10.1) Total Bilirubin 0.9 MG/DL (0.2-1.0) Aspartate Amino Transf (AST/SGOT) 106 U/L (15-37) H Alanine Aminotransferase (ALT/SGPT) 296 U/L (12-78) H Alkaline Phosphatase 156 U/L (46-116) H Total Protein 7.6 G/DL (6.4-8.2) Albumin 3.3 G/DL (3.4-5.0) L Globulin 4.3 g/dL Albumin/Globulin Ratio 0.8 (1.0-2.7) L Risk Assessment & Plan Assessment: ASA 2 Plan: GA with ETT Status Change Before Surgery: No Pre-Antibiotics Drug: Ancef 1gr Given Within 1 Hr of Incision: Yes Time Given: 10:42 Jayce De La Cruz MD Dec 15, 2018 11:09
[2018-12-15] MEDS ORDERED: DiphenhydrAMINE 50mg/ml Inj IVP PRN (11:15)
[2018-12-15] MEDS ORDERED: Meperidine 50mg/ml Inj(FOR RIGORS ONLY) IV PRN (11:15)
[2018-12-15] MEDS ORDERED: Ketorolac 30mg Inj IV PRN (11:15)
[2018-12-15] MEDS ORDERED: Hydromorphone 0.5mg/0.5ml inj IVP PRN (11:15)
--- NOTE | 2018-12-15 11:15 | General Progress Note ---
Assessment/Plan Assessment/Plan: S: My pain is better O: seems comfortable, ambulates with no limitation PHYSICAL EXAMINATION:HEAD AND NECK: Atraumatic and normocephalic. CHEST: Clear to auscultation.HEART: S1, S2. Regular rate and rhythm. ABDOMEN: Soft. No organomegaly. Positive for the guarding on deep palpation in the right upper quadrant. Negative for rebound tenderness. MUSCULOSKELETAL: No gross lateralized motor deficit. NEUROLOGY: Awake, alert, and oriented x3. Meds: Reviewed and reconcilled in the chart Imaging, abdominal ultrasound dated December 12, 2018, shows cholelithiasis with no evidence of acute cholecystitis. ASSESSMENT: 1- Acute Biliary colic 2. Acute labile biliary pancreatitis 3. Abnormal LFT. 4. Direct hyperbilirubinemia. 5. GI and DVT prophylaxis. Plan: GI, surgeon and ID notes are reviewed Once clear by GI, may followup as outpatient Subjective Allergies: Coded Allergies: No Known Allergies (Unverified , 03/12/18) Objective Last 24 Hour Vital Signs Date Time Temp Pulse Resp B/P (MAP) Pulse Ox O2 Delivery O2 Flow Rate FiO2 12/15/18 09:00 Room Air 12/15/18 08:00 98.0 65 18 113/70 (84) 99 12/15/18 04:00 98.3 65 14 103/44 (63) 96 12/15/18 00:00 98.3 60 16 111/60 (77) 94 12/14/18 21:00 Room Air 12/14/18 20:00 98.2 66 16 139/73 (95) 97 12/14/18 16:00 98.2 74 18 122/75 (91) 97 12/14/18 12:00 98.4 63 20 114/62 (79) 100 Intake and Output 12/14/18 12/15/18 19:00 07:00 Intake Total 412.6 ml 692.5 ml Balance 412.6 ml 692.5 ml Intake Oral 120 ml IV Total 292.6 ml 692.5 ml # Voids 3 # Bowel Movements 1 Laboratory Tests 12/15/18 04:50: White Blood Count 5.4, Red Blood Count 4.09L, Hemoglobin 12.7, Hematocrit 37.2, Mean Corpuscular Volume 91, Mean Corpuscular Hemoglobin 31.1H, Mean Corpuscular Hemoglobin Concent 34.2, Red Cell Distribution Width 12.5, Platelet Count 251, Mean Platelet Volume 5.1L, Neutrophils (%) (Auto) 55.6, Lymphocytes (%) (Auto) 34.9, Monocytes (%) (Auto) 6.1, Eosinophils (%) (Auto) 2.3, Basophils (%) (Auto ) 1.1, Sodium Level 143, Potassium Level 4.0, Chloride Level 106, Carbon Dioxide Level 25, Anion Gap 12, Blood Urea Nitrogen 10, Creatinine 0.6, Estimat Glomerular Filtration Rate > 60, Glucose Level 92, Calcium Level 9.5, Total Bilirubin 0.9, Aspartate Amino Transf (AST/SGOT) 106H, Alanine Aminotransferase (ALT/SGPT) 296H, Alkaline Phosphatase 156H, Total Protein 7.6, Albumin 3.3L, Globulin 4.3, Albumin/Globulin Ratio 0.8L Height (Feet): 5 Height (Inches): 0.00 Weight (Pounds): 160 Juana Gomez MD Dec 15, 2018 11:15
[2018-12-15] MEDS ORDERED: D5NS 1000ml IV ONE (11:28)
[2018-12-15] MEDS ORDERED: Tubing IV Secondary IV ONE (11:28)
--- NOTE | 2018-12-15 11:34 | General Progress Note ---
Assessment/Plan Problem List: (1) RUQ abdominal tenderness ICD Codes: R10.811 - Right upper quadrant abdominal tenderness SNOMED: 927295026 (2) Elevated liver enzymes ICD Codes: R74.8 - Abnormal levels of other serum enzymes SNOMED: 404727781 (3) Fatty liver ICD Codes: K76.0 - Fatty (change of) liver, not elsewhere classified SNOMED: 530354962 (4) Cholelithiasis ICD Codes: K80.20 - Calculus of gallbladder without cholecystitis without obstruction SNOMED: 524817031 Assessment/Plan: MRCP>> no CBD stone or dilatation repeat labs abx surg consult gallstone pancreatitis>>> improving LFTS, ? passed stone Subjective ROS Limited/Unobtainable: Yes Allergies: Coded Allergies: No Known Allergies (Unverified , 03/12/18) Objective Last 24 Hour Vital Signs Date Time Temp Pulse Resp B/P (MAP) Pulse Ox O2 Delivery O2 Flow Rate FiO2 12/15/18 09:00 Room Air 12/15/18 08:00 98.0 65 18 113/70 (84) 99 12/15/18 04:00 98.3 65 14 103/44 (63) 96 12/15/18 00:00 98.3 60 16 111/60 (77) 94 12/14/18 21:00 Room Air 12/14/18 20:00 98.2 66 16 139/73 (95) 97 12/14/18 16:00 98.2 74 18 122/75 (91) 97 12/14/18 12:00 98.4 63 20 114/62 (79) 100 Intake and Output 12/14/18 12/15/18 19:00 07:00 Intake Total 412.6 ml 692.5 ml Balance 412.6 ml 692.5 ml Intake Oral 120 ml IV Total 292.6 ml 692.5 ml # Voids 3 # Bowel Movements 1 Laboratory Tests 12/15/18 04:50: White Blood Count 5.4, Red Blood Count 4.09L, Hemoglobin 12.7, Hematocrit 37.2, Mean Corpuscular Volume 91, Mean Corpuscular Hemoglobin 31.1H, Mean Corpuscular Hemoglobin Concent 34.2, Red Cell Distribution Width 12.5, Platelet Count 251, Mean Platelet Volume 5.1L, Neutrophils (%) (Auto) 55.6, Lymphocytes (%) (Auto) 34.9, Monocytes (%) (Auto) 6.1, Eosinophils (%) (Auto) 2.3, Basophils (%) (Auto ) 1.1, Sodium Level 143, Potassium Level 4.0, Chloride Level 106, Carbon Dioxide Level 25, Anion Gap 12, Blood Urea Nitrogen 10, Creatinine 0.6, Estimat Glomerular Filtration Rate > 60, Glucose Level 92, Calcium Level 9.5, Total Bilirubin 0.9, Aspartate Amino Transf (AST/SGOT) 106H, Alanine Aminotransferase (ALT/SGPT) 296H, Alkaline Phosphatase 156H, Total Protein 7.6, Albumin 3.3L, Globulin 4.3, Albumin/Globulin Ratio 0.8L Height (Feet): 5 Height (Inches): 0.00 Weight (Pounds): 160 General Appearance: alert EENT: normal ENT inspection Neck: supple Cardiovascular: normal rate Respiratory/Chest: decreased breath sounds Abdomen: normal bowel sounds, non tender, soft Extremities: non-tender Frank Hayward MD Dec 15, 2018 11:34
--- NOTE | 2018-12-15 11:54 | Immediate Post-Op Evaluation ---
Immediate Post-Op Evalulation Immediate Post-Op Evalulation Procedure: Laparoscopic cholecystectomy Date of Evaluation: Dec 15, 2018 Time of Evaluation: 11:53 IV Fluids: 800 Blood Products: none Estimated Blood Loss: <50 Urinary Output: n/a Blood Pressure Systolic: 109 Blood Pressure Diastolic: 58 Pulse Rate: 68 Respiratory Rate: 20 O2 Sat by Pulse Oximetry: 99 Temperature (Fahrenheit): 97.8 Pain Score (1-10): 2 Nausea: No Vomiting: No Complications none Patient Status: reacts, patent, extubated, none Hydration Status: adequate Jayce De La Cruz MD Dec 15, 2018 11:54
--- NOTE | 2018-12-15 12:09 | Diagnostic Imaging Report ---
Indication: Abdominal pain Technique: Grayscale and duplex Doppler imaging of the abdomen performed. Comparison: 6 Findings: The liver is echogenic consistent with fatty infiltration. Doppler interrogation of the main portal vein shows patency with hepatopedal, monophasic flow. There is no biliary ductal dilatation identified. The CBD measures 4 mm. The spleen is unremarkable. Gallbladder is notable for multiple stones. No gallbladder wall thickening is identified. Sonographic Gutiérrez's sign was negative per technologist. There demonstrated part of the pancreas, aorta and IVC show no definite abnormalities. Both kidneys appear unremarkable. There is no hydronephrosis. IMPRESSION: Cholelithiasis Fatty liver
--- NOTE | 2018-12-15 12:55 | Brief Operative Note ---
Immediate Post Operative Note Operative Note Pre-op Diagnosis: acute gallstone pancreatitis Procedure: lap leela Post-op Diagnosis: same as pre-op Surgeon: jose Anesthesiologist: den Anesthesia: general, local Specimen: yes Complications: none Condition: stable Fluids: see records Estimated Blood Loss: minimal Drains: none Implant(s) used?: No Salvador Perez Dec 15, 2018 12:55
--- NOTE | 2018-12-15 13:26 | NUR ---
NURSE NOTES: Received report from BRAYDEN Schwarz in PACU. Pt in bed, awake, but fatigued, 4 lap sites covered with dressings, clean and dry, no bleeding, pt states she does not have any pain, vitals obtained and assessment done. No apparent distress. Family at bedside
--- NOTE | 2018-12-15 14:13 | Infectious Diseases Prog Note ---
Assessment/Plan Problems: (1) Cholelithiasis Assessment & Plan: with possible cholecystitis , may need cholecystectomy, continue zosyn empirically for now pending work up , GI and surgery are following (2) Elevated liver enzymes Assessment & Plan: suspect due to the above , monitor LFT, may need ERCP for further eval of the CBD and for source control (3) Acute gallstone pancreatitis Assessment & Plan: due to the above , continue hydration and paian management, monitor lipase, keep NPO (4) RUQ abdominal tenderness Assessment & Plan: suspect due to the above, continue pain management as per primary Subjective Constitutional: Reports: no symptoms HEENT: Reports: no symptoms Respiratory: Reports: no symptoms Breasts: Reports: no symptoms Cardiovascular: Reports: no symptoms Gastrointestinal/Abdominal: Reports: nausea, bloating Genitourinary: Reports: no symptoms Neurologic: Reports: no symptoms Psychiatric: Reports: no symptoms Skin: Reports: no symptoms Endocrine: Reports: no symptoms Hematologic: Reports: no symptoms Musculoskeletal: Reports: no symptoms Allergies: Coded Allergies: No Known Allergies (Unverified , 03/12/18) Objective Vital Signs Last 24 Hour Vital Signs Date Time Temp Pulse Resp B/P (MAP) Pulse Ox O2 Delivery O2 Flow Rate FiO2 12/15/18 13:26 97.8 69 16 137/72 (93) 99 12/15/18 13:11 68 16 132/72 100 Nasal Cannula 3 12/15/18 13:05 97.4 70 17 119/66 100 Nasal Cannula 3 12/15/18 12:55 66 16 121/62 100 Nasal Cannula 3 12/15/18 12:45 66 14 115/64 100 Nasal Cannula 3 12/15/18 12:35 64 17 117/63 100 Nasal Cannula 3 12/15/18 12:20 66 15 122/64 100 Nasal Cannula 3 12/15/18 12:10 67 17 119/63 100 Simple Mask 6 12/15/18 12:00 65 17 109/59 100 Simple Mask 6 12/15/18 11:56 65 16 103/56 100 Simple Mask 6 12/15/18 11:54 68 20 99 12/15/18 11:51 97.8 64 19 109/54 100 Simple Mask 6 12/15/18 09:00 Room Air 12/15/18 08:00 98.0 65 18 113/70 (84) 99 12/15/18 04:00 98.3 65 14 103/44 (63) 96 12/15/18 00:00 98.3 60 16 111/60 (77) 94 12/14/18 21:00 Room Air 12/14/18 20:00 98.2 66 16 139/73 (95) 97 12/14/18 16:00 98.2 74 18 122/75 (91) 97 Height (Feet): 5 Height (Inches): 0.00 Weight (Pounds): 160 General Appearance: WD/WN, no acute distress HEENT: normocephalic, atraumatic, anicteric, mucous membranes moist, PERRL Respiratory/Chest: chest wall non-tender, lungs clear, normal breath sounds, no respiratory distress, no accessory muscle use Cardiovascular: normal peripheral pulses, normal rate, regular rhythm, no gallop/murmur, no JVD Abdomen: normal bowel sounds, soft, non tender, no organomegaly, non distended , no mass, no scars Extremities: no cyanosis, no clubbing Skin: no rash, no lesions, no ulcers Neurologic/Psychiatric: alert, responsive Lymphatic: no neck adenopathy, no groin adenopathy Musculoskeletal: normal muscle bulk, no effusion Laboratory Tests Test 12/15/18 04:50 White Blood Count 5.4 K/UL (4.8-10.8) Red Blood Count 4.09 M/UL (4.20-5.40) L Hemoglobin 12.7 G/DL (12.0-16.0) Hematocrit 37.2 % (37.0-47.0) Mean Corpuscular Volume 91 FL (80-99) Mean Corpuscular Hemoglobin 31.1 PG (27.0-31.0) H Mean Corpuscular Hemoglobin Concent 34.2 G/DL (32.0-36.0) Red Cell Distribution Width 12.5 % (11.6-14.8) Platelet Count 251 K/UL (150-450) Mean Platelet Volume 5.1 FL (6.5-10.1) L Neutrophils (%) (Auto) 55.6 % (45.0-75.0) Lymphocytes (%) (Auto) 34.9 % (20.0-45.0) Monocytes (%) (Auto) 6.1 % (1.0-10.0) Eosinophils (%) (Auto) 2.3 % (0.0-3.0) Basophils (%) (Auto) 1.1 % (0.0-2.0) Sodium Level 143 MMOL/L (136-145) Potassium Level 4.0 MMOL/L (3.5-5.1) Chloride Level 106 MMOL/L (98-107) Carbon Dioxide Level 25 MMOL/L (21-32) Anion Gap 12 mmol/L (5-15) Blood Urea Nitrogen 10 mg/dL (7-18) Creatinine 0.6 MG/DL (0.55-1.30) Estimat Glomerular Filtration Rate > 60 mL/min (>60) Glucose Level 92 MG/DL (74-106) Calcium Level 9.5 MG/DL (8.5-10.1) Total Bilirubin 0.9 MG/DL (0.2-1.0) Aspartate Amino Transf (AST/SGOT) 106 U/L (15-37) H Alanine Aminotransferase (ALT/SGPT) 296 U/L (12-78) H Alkaline Phosphatase 156 U/L (46-116) H Total Protein 7.6 G/DL (6.4-8.2) Albumin 3.3 G/DL (3.4-5.0) L Globulin 4.3 g/dL Albumin/Globulin Ratio 0.8 (1.0-2.7) L Current Medications Medications (Trade) Dose Ordered Sig/Rachana Route PRN Reason Start Time Stop Time Status Last Admin Dose Admin Acetaminophen (Tylenol) 650 mg Q4H PRN ORAL Mild Pain/Temp > 100.5 12/13/18 00:00 01/12/19 00:00 Acetaminophen/ Hydrocodone Bitart (Dutton 10/325) 1 tab Q4H PRN ORAL Severe Pain (Pain Scale 7-10) 12/15/18 13:00 12/22/18 12:59 UNV Acetaminophen/ Hydrocodone Bitart (Dutton 5/325) 1 tab Q4H PRN ORAL Moderate Pain (Pain Scale 4-6) 12/15/18 13:00 12/22/18 12:59 UNV Dextrose/Sodium Chloride 1,000 ml @ 100 mls/hr Q10H IV 12/13/18 00:00 01/12/19 00:00 12/14/18 13:28 Diphenhydramine HCl (Benadryl) 25 mg Q15M PRN IVP Itching 12/15/18 11:15 12/15/18 17:00 Heparin Sodium (Porcine) (Heparin 5000 units/ml) 5,000 units EVERY 12 HOURS SUBQ 12/13/18 09:00 01/12/19 08:59 12/14/18 09:40 Hydromorphone HCl (Dilaudid) 0.5 mg Q5M PRN IVP Severe Pain (Pain Scale 7-10) 12/15/18 11:15 12/15/18 17:00 Ketorolac Tromethamine (Toradol 30mg) 30 mg Q1H PRN IV Severe Breakthru Pain (>7) 12/15/18 11:15 12/15/18 17:00 Meperidine HCl (Demerol) 25 mg Q15M PRN IV chills 12/15/18 11:15 12/15/18 17:00 Ondansetron HCl (Zofran) 4 mg Q1H PRN IVP Nausea & Vomiting 12/15/18 11:15 12/15/18 17:00 Ondansetron HCl (Zofran) 4 mg Q6H PRN IVP Nausea & Vomiting 12/13/18 00:00 01/12/19 00:00 Pantoprazole (Protonix) 40 mg DAILY ORAL 12/13/18 09:00 01/12/19 08:59 12/14/18 09:33 Piperacillin Sod/ Tazobactam Sod 3.375 gm/Sodium Chloride 110 ml @ 27.5 mls/hr EVERY 8 HOURS IVPB 12/13/18 10:00 12/18/18 09:59 12/15/18 04:12 Tramadol HCl (Ultram) 50 mg Q6H PRN ORAL For Pain 12/13/18 00:00 12/20/18 00:00 Nick Lora M.D. Dec 15, 2018 14:13
--- NOTE | 2018-12-15 14:19 | NUR ---
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 PHOS 156 IS:NORCO 1tab ZOSYN 110mL IVPB PROTONIX 40mg HEPARIN SUBQ MED/SURG STATUS
--- NOTE | 2018-12-15 14:44 | NUR ---
NURSE NOTES: Per Dr. Perez order, DC IV fluid and SL. Notified Dr. Gomez of Dr. Perez order and pt is tolerating PO diet. Asked Dr. Gomez to confirm order as Dr. Gomez is primary
--- NOTE | 2018-12-15 14:58 | NUR ---
NURSE NOTES: Called RT for IS, asked to deliver in 1 hour as pt is still groggy
[2018-12-15] MEDS ORDERED: HYDROcodone/Acetamin 5/325 tab ORAL PRN (15:00)
[2018-12-15] MEDS ORDERED: HYDROcodone/Acetamin 10/325 tab ORAL PRN (15:00)
--- NOTE | 2018-12-15 19:06 | NUR ---
HAND-OFF: Report given to BRAYDEN Simmons.
--- NOTE | 2018-12-15 19:52 | NUR ---
NURSE NOTES: Received patient awake,alert,verbal,ambulates with assist,without any complaints. Relatives at bedside.
[2018-12-16] VITALS: BP 126/64
[2018-12-16 04:00] VITALS: BP 113/67
[2018-12-16] MEDS: Piperacillin/Tazobactam 3.375 GM in NS 110 ML IVPB SCH ×2 (05:01→13:51)
[2018-12-16 06:31] LABS: BASOPHILS % (AUTO) 0.3 % (0.0-2.0); EOSINOPHILS % (AUTO) 0.9 % (0.0-3.0); HEMATOCRIT 35.6 % (37.0-47.0); HEMOGLOBIN 12.3 G/DL (12.0-16.0); LYMPHOCYTES % (AUTO) 23.9 % (20.0-45.0); MEAN CORPUSCULAR VOLUME 91 FL (80-99); NEUTROPHILS % (AUTO) 67.9 % (45.0-75.0); PLATELET COUNT 239 K/UL (150-450); RED BLOOD COUNT 3.92 M/UL (4.20-5.40); WHITE BLOOD COUNT 7.9 K/UL (4.8-10.8)
[2018-12-16 06:45] LABS: ANION GAP 11 mmol/L (5-15); BLOOD UREA NITROGEN 10 mg/dL (7-18); CALCIUM 8.8 MG/DL (8.5-10.1); CARBON DIOXIDE 25 MMOL/L (21-32); CHLORIDE 106 MMOL/L (98-107); CREATININE 0.6 MG/DL (0.55-1.30); POTASSIUM 3.4 MMOL/L (3.5-5.1); SODIUM 142 MMOL/L (136-145)
--- NOTE | 2018-12-16 07:24 | NUR ---
HAND-OFF: Report given to Etta Woodson RN.
--- NOTE | 2018-12-16 07:25 | NUR ---
NURSE NOTES: AWAKE/ALERT. NO C/O PAIN. ABDOMINAL LAP SITES X3 DRESSINF DRY NAD INTACT. IN NO DISTRESS.
[2018-12-16 08:00] VITALS: BP 105/74
[2018-12-16] MEDS: Heparin 5000 units/ml inj SUBQ SCH (08:38)
--- NOTE | 2018-12-16 08:55 | 48 Hour Post Anesthesia Eval ---
Post Anesthesia Evaluation Procedure: Laparoscopic cholecystectomy Date of Evaluation: Dec 16, 2018 Airway: patent Nausea: No Vomiting: No Hydration Status: adequate Cardiopulmonary Status: at baseline Mental Status/LOC: patient returned to baseline Post-Anesthesia Complications: 0 Follow-up care needed: N/A - further care as per primary team Cristal Salomon MD Dec 16, 2018 08:55
--- NOTE | 2018-12-16 09:51 | General Progress Note ---
Assessment/Plan Problem List: (1) RUQ abdominal tenderness ICD Codes: R10.811 - Right upper quadrant abdominal tenderness SNOMED: 437446890 (2) Elevated liver enzymes ICD Codes: R74.8 - Abnormal levels of other serum enzymes SNOMED: 603338990 (3) Fatty liver ICD Codes: K76.0 - Fatty (change of) liver, not elsewhere classified SNOMED: 405017114 (4) Cholelithiasis ICD Codes: K80.20 - Calculus of gallbladder without cholecystitis without obstruction SNOMED: 982989973 Assessment/Plan: MRCP>> no CBD stone or dilatation POD #1 cholecystectomy abx fu surg recs Subjective ROS Limited/Unobtainable: Yes Allergies: Coded Allergies: No Known Allergies (Unverified , 03/12/18) Objective Last 24 Hour Vital Signs Date Time Temp Pulse Resp B/P (MAP) Pulse Ox O2 Delivery O2 Flow Rate FiO2 12/16/18 08:51 Room Air 12/16/18 08:00 99.9 82 20 105/74 (84) 94 12/16/18 04:00 98.9 70 18 113/67 (82) 96 12/16/18 00:00 98.8 68 18 126/64 (84) 95 12/15/18 22:40 98.8 12/15/18 20:16 Room Air 12/15/18 20:00 98.8 71 16 122/70 (87) 95 12/15/18 16:26 98.9 78 16 122/73 (89) 97 12/15/18 15:26 98.0 96 18 127/71 (89) 98 12/15/18 14:26 98.5 82 16 124/67 (86) 97 12/15/18 13:26 97.8 69 16 137/72 (93) 99 12/15/18 13:11 68 16 132/72 100 Nasal Cannula 3 12/15/18 13:05 97.4 70 17 119/66 100 Nasal Cannula 3 12/15/18 12:55 66 16 121/62 100 Nasal Cannula 3 12/15/18 12:45 66 14 115/64 100 Nasal Cannula 3 12/15/18 12:35 64 17 117/63 100 Nasal Cannula 3 12/15/18 12:20 66 15 122/64 100 Nasal Cannula 3 12/15/18 12:10 67 17 119/63 100 Simple Mask 6 12/15/18 12:00 65 17 109/59 100 Simple Mask 6 12/15/18 11:56 65 16 103/56 100 Simple Mask 6 12/15/18 11:54 68 20 99 12/15/18 11:51 97.8 64 19 109/54 100 Simple Mask 6 Intake and Output 12/15/18 12/16/18 18:59 06:59 Intake Total 1507.5 ml 247.5 ml Output Total 40 ml Balance 1467.5 ml 247.5 ml Intake Oral 480 ml IV Total 1027.5 ml 247.5 ml Output Estimated Blood Loss 40 ml # Voids 3 2 Laboratory Tests 12/16/18 05:20: White Blood Count 7.9, Red Blood Count 3.92L, Hemoglobin 12.3, Hematocrit 35.6L , Mean Corpuscular Volume 91, Mean Corpuscular Hemoglobin 31.3H, Mean Corpuscular Hemoglobin Concent 34.4, Red Cell Distribution Width 12.0, Platelet Count 239, Mean Platelet Volume 5.2L, Neutrophils (%) (Auto) 67.9, Lymphocytes ( %) (Auto) 23.9, Monocytes (%) (Auto) 7.0, Eosinophils (%) (Auto) 0.9, Basophils (%) (Auto) 0.3, Sodium Level 142, Potassium Level 3.4L, Chloride Level 106, Carbon Dioxide Level 25, Anion Gap 11, Blood Urea Nitrogen 10, Creatinine 0.6, Estimat Glomerular Filtration Rate > 60, Glucose Level 119H, Calcium Level 8.8 Height (Feet): 5 Height (Inches): 0.00 Weight (Pounds): 171 General Appearance: alert EENT: normal ENT inspection Neck: supple Cardiovascular: normal rate Respiratory/Chest: decreased breath sounds Abdomen: soft Extremities: non-tender Frank Hayward MD Dec 16, 2018 09:51
--- NOTE | 2018-12-16 10:00 | NUR ---
NURSE NOTES: OOB,AMBULATED OUT IN THE BLAIR TOLERATED.
--- NOTE | 2018-12-16 10:38 | General Progress Note ---
Assessment/Plan Assessment/Plan: Labs, Meds are reviwed. Notes from GI, and ID reviewed. Agree to continue with Post op care. Subjective Allergies: Coded Allergies: No Known Allergies (Unverified , 03/12/18) Objective Last 24 Hour Vital Signs Date Time Temp Pulse Resp B/P (MAP) Pulse Ox O2 Delivery O2 Flow Rate FiO2 12/16/18 08:51 Room Air 12/16/18 08:00 99.9 82 20 105/74 (84) 94 12/16/18 04:00 98.9 70 18 113/67 (82) 96 12/16/18 00:00 98.8 68 18 126/64 (84) 95 12/15/18 22:40 98.8 12/15/18 20:16 Room Air 12/15/18 20:00 98.8 71 16 122/70 (87) 95 12/15/18 16:26 98.9 78 16 122/73 (89) 97 12/15/18 15:26 98.0 96 18 127/71 (89) 98 12/15/18 14:26 98.5 82 16 124/67 (86) 97 12/15/18 13:26 97.8 69 16 137/72 (93) 99 12/15/18 13:11 68 16 132/72 100 Nasal Cannula 3 12/15/18 13:05 97.4 70 17 119/66 100 Nasal Cannula 3 12/15/18 12:55 66 16 121/62 100 Nasal Cannula 3 12/15/18 12:45 66 14 115/64 100 Nasal Cannula 3 12/15/18 12:35 64 17 117/63 100 Nasal Cannula 3 12/15/18 12:20 66 15 122/64 100 Nasal Cannula 3 12/15/18 12:10 67 17 119/63 100 Simple Mask 6 12/15/18 12:00 65 17 109/59 100 Simple Mask 6 12/15/18 11:56 65 16 103/56 100 Simple Mask 6 12/15/18 11:54 68 20 99 12/15/18 11:51 97.8 64 19 109/54 100 Simple Mask 6 Intake and Output 12/15/18 12/16/18 18:59 06:59 Intake Total 1507.5 ml 247.5 ml Output Total 40 ml Balance 1467.5 ml 247.5 ml Intake Oral 480 ml IV Total 1027.5 ml 247.5 ml Output Estimated Blood Loss 40 ml # Voids 3 2 Laboratory Tests 12/16/18 05:20: White Blood Count 7.9, Red Blood Count 3.92L, Hemoglobin 12.3, Hematocrit 35.6L , Mean Corpuscular Volume 91, Mean Corpuscular Hemoglobin 31.3H, Mean Corpuscular Hemoglobin Concent 34.4, Red Cell Distribution Width 12.0, Platelet Count 239, Mean Platelet Volume 5.2L, Neutrophils (%) (Auto) 67.9, Lymphocytes ( %) (Auto) 23.9, Monocytes (%) (Auto) 7.0, Eosinophils (%) (Auto) 0.9, Basophils (%) (Auto) 0.3, Sodium Level 142, Potassium Level 3.4L, Chloride Level 106, Carbon Dioxide Level 25, Anion Gap 11, Blood Urea Nitrogen 10, Creatinine 0.6, Estimat Glomerular Filtration Rate > 60, Glucose Level 119H, Calcium Level 8.8 Height (Feet): 5 Height (Inches): 0.00 Weight (Pounds): 171 Juana Gomez MD Dec 16, 2018 10:38
--- NOTE | 2018-12-16 10:49 | NUR ---
NURSE NOTES: K 3.4 DR AMEZCUA NOTIFIED WITH NEW ORDER.
[2018-12-16 11:58] VITALS: BP 114/64
[2018-12-16] MEDS ORDERED: ACETAMINOPHEN-1 EAC1 ORAL (14:21)
[2018-12-16] MEDS ORDERED: COLACE100 MG ORAL (14:22)
--- NOTE | 2018-12-16 14:29 | NUR ---
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 FATTY LIVER VS: BP 105/74, P 68, T 99.8, RR 20, SpO2 93 K 3.4, GLUCOSE 119, RBC 3.92, Hct 35.6 IS:K-DUR 40meq ZOSYN 110ml IVPB PROTONIX 40mg HEPARIN SUBQ MED/SURG STATUS
--- NOTE | 2018-12-16 15:04 | NUR ---
NURSE NOTES: DISCHARGED HOME PER WHEELCHAIR ACCPD BY IN STABLE CONDITION. DC INSTRUCTIONS AND RX GIVEN.
[2018-12-16] MEDS ORDERED: NS 275ml ONE (15:05)
[2018-12-16] MEDS ORDERED: Tubing IV Secondary IV ONE (15:05)
--- NOTE | 2018-12-16 19:45 | Operative Note - Dictated ---
DATE OF OPERATION: 12/16/2018 PREOPERATIVE DIAGNOSIS: Acute gallstone pancreatitis. POSTOPERATIVE DIAGNOSIS: Acute gallstone pancreatitis. OPERATION PERFORMED: Laparoscopic cholecystectomy. ATTENDING SURGEON: Salvador Perez M.D. MACHINE REBUILDER: None. ANESTHESIOLOGIST: Jayce De La Cruz M.D. ANESTHESIA: General GETA. ESTIMATED BLOOD LOSS: Minimal. IV FLUIDS: Please see anesthesia records. COMPLICATIONS: None. DRAINS: None. SPECIMENS: Gallbladder and stones sent to pathology for review. WOUND CLASSIFICATION: Class 3. ANTIBIOTICS: The patient on scheduled IV antibiotics for acute active inflammatory process INDICATIONS FOR PROCEDURE: This is a 53-year-old female who presented to [facility] Emergency Department complaining of worsening right upper quadrant abdominal pain with associated nausea and was identified to have a significantly elevated lipase and LFTs along with ultrasound findings of cholelithiasis and MRCP with gallbladder wall thickening and cholelithiasis. The patient was identified not to have choledocholithiasis. As the patient's labs improved and she overall improved, surgery was offered to the patient prior to discharge. The patient expressed understanding and had stated that she would not feel comfortable leaving the hospital given the acute attack she had and the one she has had in the past and would like to proceed with surgery. Risks, benefits, alternatives were discussed in detail. Consent was obtained. OPERATIVE NOTE: The patient was taken to the operating room and placed on the operating table in supine position with bilateral arms out. All bony prominences well padded. SCDs were placed. Preoperative time-out taken to identify the patient, procedure, operative staff, and surgical staff. General anesthesia was induced and the patient was intubated. The abdomen was clipped, prepped, draped in standard surgical fashion. Given the patient's prior infraumbilical incision that she has had from prior surgery, a supraumbilical incision was made using a fresh #11 scalpel and carried down to the fascia, which was elevated and incised. Entry into the abdomen was obtained using the open Ragini technique without complication. A 12 mm Ragini trocar was inserted and the abdomen was insufflated to 12 to 15 mmHg. The patient tolerated the insufflation well. Laparoscope was inserted and the abdomen was inspected. Initially inspecting the abdomen as anticipated just caudal to the supraumbilical incision, there were adhesions to the anterior abdominal wall from the patient's prior surgery, but they were uncomplicated otherwise. The liver was identified as well as a thickened dense gallbladder. The patient was placed in reverse Trendelenburg with left side down. Secondary trocars were placed under direct visualization beginning with a 12 mm subxiphoid followed by two 5 mm right subcostal ports. No injury from secondary trocar placement identified. Using most lateral port, the dome of the gallbladder was grasped and retracted over the liver. Omental and peritoneal attachments to the gallbladder were slowly dissected out with laparoscopic graspers. Following this, the infundibulum was cleared and grasped using the midclavicular port. The infundibulum was retracted towards the right lower quadrant. With gentle dissection, the cystic artery and cystic duct were identified and critical view was obtained. The cystic artery was doubly clipped and divided. Following this, only remaining structure entering into the gallbladder infundibulum was the cystic duct. The cystic duct was doubly clipped and divided as well. The gallbladder was taken off the liver attachments using electrocautery. The gallbladder was placed in endoscopic retrieval bag and removed using the subxiphoid port. The liver bed was irrigated and suctioned. Hemostasis was obtained from the liver bed using electrocautery. The cystic duct and artery stumps were identified and noted to be hemostatic without leakage. At this time, a Surgicel was placed in the liver bed and we began conclusion of our procedure. Secondary trocars removed under direct visualization. The patient was flattened out. The umbilical trocar site and subxiphoid trocar site fascia were reapproximated using [id number] 0 Vicryl sutures. The remaining skin incisions were approximated using 4-0 Monocryl subcuticular interrupted sutures. Of note throughout the procedure, local anesthetic was used at the skin incision sites and trocar sites for the patient's comfort. Benzoin and Steri-Strips were applied followed by dressings. The patient tolerated the procedure well, was extubated, and taken to postanesthetic care unit in stable condition. Salvador Perez M.D. DR: ALLIE JOB#: [id number] CC:
--- NOTE | 2018-12-17 10:17 | Discharge Summary ---
Discharge Summary Discharge Summary _ DATE OF ADMISSION: 12/12/2028 DATE OF DISCHARGE: 12/16/2018 DISCHARGED BY: Dr. Juana Gomez CONSULTANTS: Dr. Salvador Lora BRIEF HOSPITAL COURSE: Patient is a 53 year-old female, with unremarkable past medical history, presented to ED with worsening pain in the right upper abdomen. Patient reported pain had gotten progressively worse. She denied any nausea or vomiting. Denied fever or chills. On evaluation at the ED, vital signs were stable. Patient was afebrile. Blood work did not show any leukocytosis. Hemoglobin hematocrit were normal. Electrolytes were normal. Total bilirubin elevated to 2.4 and direct bilirubin to 1.8. AST was 629. ALT 620. Alkaline phosphatase 185. Lipase was elevated to >2000 amylase was elevated to 461. Lipid panel showed triglycerides of 90. EKG was in normal sinus rhythm. Chest x-ray did not show any acute disease. Abdominal ultrasound showed hepatic steatosis. Cholelithiasis. No definite cholecystitis. He was then admitted for evaluation of acute biliary colic and obstructive biliary symptoms with no evidence of acute cholecystitis. She was admitted to medical floor. She was placed on n.p.o. She was given IV fluids. She was started empirically on Zosyn. GI and surgeon were consulted. Abdominal ultrasound showed cholelithiasis and fatty liver. MRCP showed cholelithiasis with mild gallbladder wall thickening. No evidence of biliary ductal dilatation or choledocholithiasis. On 12/15/18, she underwent laparoscopic cholecystectomy. She tolerated procedure well and was taken to postanesthetic care unit in stable condition. LFTs down trended. Lipase normalized. She was given potassium supplements. She was tolerating diet well. She was eventually discharged home. FINAL DIAGNOSES: Acute biliary colic due to acute gallstone pancreatitis Status post laparoscopic cholecystectomy Elevated liver enzymes Direct hyperbilirubinemia Fatty liver Cholelithiasis Hypokalemia DISPOSITION: Patient was discharged home. DISCHARGE MEDICATIONS: Refer to Discharge Medication List. DISCHARGE INSTRUCTIONS: Follow-up in a week. I have been assigned to complete a discharge summary on this account, I was not involved with the patient's management.--DANIEL Quijano Jacqueline Robles NP Dec 17, 2018 10:17
--- NOTE | 2018-12-18 16:14 | Cardiology Report ---
APPROVED REPORT EKG Measurement Heart [id number] [id number] Normal sinus rhythm Normal ECG
== END 2018-12-16 15:06 | disposition home or self-care (01) | DRG 263 ==
LOC: EMR 21:06 → 4E 21:11 → EDBEDREQ 22:52
PROC: 0FT44ZZ Resection of Gallbladder, Percutaneous Endoscopic Approach (ICD-10-PCS; principal; 2018-12-16)
DX: K85.10 Biliary acute pancreatitis without necrosis or infection (principal); K80.70 Calculus of gallbladder and bile duct without cholecystitis without obstruction; K76.0 Fatty (change of) liver, not elsewhere classified; R74.8 Abnormal levels of other serum enzymes; E87.6 Hypokalemia
CPT/HCPCS: 36415; 71045; 74181; 76700; 76705; 80048; 80053; 80061; 81001; 82150; 82248; 83036; 83690; 84443; 85025; 85610; 85730; 86850; 86900; 86901; 93005; 94003; 94150; 96374; 99285; J2250; J2710; J8499